=== PATIENT | female | born 1975 | race Caucasian/White ===

== ENCOUNTER 2019-03-13 09:42 | Inpatient (IN) ==
[2019-03-13] MEDS ORDERED: VANCOMYCIN 1 GM/NS 1 GM/250 ML IVPB IV ONE ×3 (09:50→15:00)
[2019-03-13] MEDS ORDERED: NS 1,000 ML IV ONE ×2 (09:50→09:51)
[2019-03-13] MEDS ORDERED: TYLENOL PO ONE (09:51)
[2019-03-13] MEDS ORDERED: ZOFRAN IV ONE (09:54)
[2019-03-13] MEDS ORDERED: MORPHINE IV ONE (09:54)
[2019-03-13 10:05] LABS: ALLEN TEST YES; BE -2.3 mmoll (-3.0-3.0); BLOOD TYPE ARTERIAL; HCO3-(ACT) 22.8 mmoll (20.0-26.0); METHB 1.1 % (0.0-1.5); O2(CT) 18.5 mL/dL (15.0-23.0); PCO2(98.6) 38 mmHg (35-45); SAMPLE BLOOD; SAO2 88.1 % (95.0-100.0); THB 15.4 g/dL (11.5-17.4); pH(98.6) 7.38 (7.35-7.45)
[2019-03-13 10:06] LABS: MODALITY ROOM AIR
[2019-03-13 10:10] LABS: PO2(98.6) 49 mmHg (60-100)
--- NOTE | 2019-03-13 10:13 | PROVIDER DOCUMENTATION ---
This chart was entered by Loar Vila Scribe, acting as scribe for David Garcia MD. HPI-General Adult <Freddie Rosa. - Last Filed: 03/13/19 11:54> - General Source: patient, EMS - History of Present Illness -Gen Adult Nature of Presenting Problems: 43 yowf presents to the [facility] ems for possible infection of her pannus. pt is morbidly obese and is unkempt with a foul odor about her. pt is sob when ems aos and was given O2 and breathing tx. pt noted sx onset on 03/10/19 and has worsened Location of Pain/Injury: reports: abdomen (pannus) Pain Radiation: reports: legs (lower), suprapubic Quality of Pain: reports: fullness Severity: reports: moderate Onset/Duration: reports: other (march 10) Timing: reports: still present, constant, getting worse Context/Activities at Onset: reports: light activity Modifying Factors: improves with: nothing Associated Symptoms: reports: fatigue, malaise, muscle aches, shortness of breath. denies: back/neck pain, chest pain, fever/chills, headaches, nausea, syncope, vomiting, weakness, trouble walking Similar Symptoms Previously?: No Recently seen or treated by another doctor?: No <David Garcia - Last Filed: 03/19/19 14:34> - General Chief Complaint: SEPSIS ALERT - D Stated Complaint: hip infection Time Seen by Provider: 03/13/19 09:47 Allergies/Adverse Reactions: Patient Allergies Allergy/AdvReac Type Severity Reaction Status Date / Time xylitol Allergy ANAPHYLAXIS Verified 03/13/19 10:17 aspirin AdvReac Unknown Verified 03/13/19 10:17 bee venom protein (honey bee) AdvReac FLUSHING Verified 03/13/19 10:17 naproxen AdvReac Unknown Verified 03/13/19 10:17 Mt. Dew Allergy ANAPHYLAXIS Uncoded 03/13/19 10:17 Powerade Allergy ANAPHYLAXIS Uncoded 03/13/19 10:17 Plastic AdvReac Unknown Uncoded 03/13/19 10:17 Tape AdvReac Unknown Uncoded 03/13/19 10:17 Home Medications: Home Medication List Medication Instructions Recorded Confirmed Last Taken Type Folic Acid 1 mg PO HS 03/13/19 03/13/19 03/12/19 History Meloxicam 15 mg PO HS 03/13/19 03/13/19 03/12/19 History Methotrexate Sodium/Pf 0.9 ml IJ Q7D 03/13/19 03/13/19 03/06/19 History [Methotrexate 50 mg/2 ml Vial] Review of Systems - Adult - REVIEW OF SYSTEMS - ADULT Constitutional: denies: fever, fatique Eyes: reports: no symptoms reported Ears, Nose, Mouth & Throat: reports: no symptoms reported Cardiovascular: reports: see HPI, poor circulation. denies: chest pain, palpitations Respiratory: reports: see HPI, shortness of breath. denies: cough, wheezing Gastrointestinal: reports: see HPI, abdominal pain, other (pannus). denies: diarrhea, poor appetite, vomiting Genitourinary: reports: no symptoms reported Musculoskeletal: reports: see HPI, other (lower extremity). denies: neck pain Integumentary: reports: see HPI, skin sores/ulcer, other (foul smell redness and swelling of abd pannus and le) Neurological: denies: dizziness/vertigo, headache/migraines Psychiatric: reports: no symptoms reported Endocrine: reports: no symptoms reported Hematologic/Lymphatic: reports: no symptoms reported Allergic/Immunologic: reports: no symptoms reported All Other Systems: Reviewed and Negative <David Garcia - Last Filed: 03/19/19 14:34> Past History - Adult - PAST MEDICAL HISTORY-ADULT Review of Records: reports: Old Records Reviewed, Nursing Assessment Review, Medications Reviewed, Social history reviewed & non-contributory. Major Childhood Illnesses: reports: denies history Cardiovascular: reports: denies history Respiratory: reports: asthma Gastrointestinal: reports: denies history Obstetrical/Gynecological: reports: denies history Genitourinary: reports: denies history Musculoskeletal: reports: arthritis Neurological: reports: Seizures/Epilepsy Psychiatric: reports: denies history Endocrine/Immune: reports: denies history Other Conditions: reports: denies history - PRIOR SURGERIES/PROCEDURES Surgical/Procedure History: reports: reviewed, not pertinent - IMMUNIZATION STATUS Childhood Immunizations: See Nurse Assessment Flu Vaccine: See Nurse Assessment - FAMILY HISTORY Family History: reviewed, not pertinent - SOCIAL HISTORY Smoking: denies Substance Use: denies Living Situation: family <David Garcia - Last Filed: 03/19/19 14:34> Physical Exam-General - PHYSICAL EXAM-ADULT Initial Vital Signs Reviewed: Yes - CONSTITUTIONAL General Appearance: alert, mild distress, obese, anxious - EYES Eyes: PERRL/EOMI, pink conjunctivae - HEAD, EARS, NOSE, MOUTH & THROAT HENMT: moist mucous membranes - NECK Neck: non-tender, full range of motion, supple, normal inspection - RESPIRATORY Respiratory: chest non-tender, no pleuratic chest pain, respiratory distress (mi ld low o2 84% placed on O2 2LPM via NC now 95), increased rate (36) - CARDIOVASCULAR Cardiovascular: normal peripheral pulses, tachycardia (124) - GASTROINTESTINAL (ABDOMEN) Abdominal Exam: soft, tenderness (pannus), other (redness swollen and foul smell to pannus area with satlite lesions on rt thigh) - LYMPHATIC Lymphatic: no adenopathy - MUSCULOSKELETAL Back Exam: normal inspection Extremity: erythema, pedal edema (cynosis to BLE), swelling ($+ pitting edema) - SKIN Integumentary: erythema (to pannus and abd) <David Garcia - Last Filed: 03/19/19 14:34> Progress - PLAN OF CARE/RESULTS Progress/Plan/Lab Results: Vital Signs - 8 hr 03/13/19 09:51 Temperature 98.3 F Pulse Rate 124 H Respiratory Rate 36 H Blood Pressure 119/81 O2 Sat by Pulse Oximetry 96 Laboratory Results - last 24 hr 03/13/19 03/13/19 03/13/19 09:56 10:20 11:03 WBC 11.11 H RBC 5.65 H Hgb 15.5 Hct 49.3 H MCV 87.3 MCH 27.4 MCHC 31.4 L RDW Std Deviation 21.4 H Plt Count 128 L MPV 11.2 H Neut % (Auto) 89.2 H Lymph % (Auto) 6.7 L Towns % (Auto) 4.0 Eos % (Auto) 0.0 Baso % (Auto) 0.1 Neut # (Auto) 9.92 H Lymph # (Auto) 0.74 L Towns # (Auto) 0.44 Eos # (Auto) 0.00 Baso # (Auto) 0.01 PT INR PTT (Actin FS) Specimen Type ARTERIAL Sample Site L RADIAL pH 7.38 pCO2 38 pO2 49 L* HCO3 22.8 Base Excess -2.3 Oxyhemoglobin 85.5 L* ABG O2 Sat (Calculated) 18.5 ABG O2 Saturation 88.1 L ABG Carboxyhemoglobin 1.80 ABG Methemoglobin 1.1 Jose Test YES A-a O2 Difference 53.0 Total Hemoglobin 15.4 Lactate 2.70 H Blood Gas Modality ROOM AIR FiO2 % 21.0 Sodium 134 L Potassium 4.8 Chloride 97 L Carbon Dioxide 21 L Anion Gap 16 BUN 14 Creatinine 0.8 Estimated GFR/1.73 m2 > 60 BUN/Creatinine Ratio 18 Glucose 109 H Calculated Osmolality 269 Calcium 8.4 L Magnesium 1.6 Total Bilirubin 1.15 H AST 18 ALT 12 Alkaline Phosphatase 50 Creatine Kinase Troponin T Total Protein 6.5 Albumin 2.9 L Globulin 3.6 Albumin/Globulin Ratio 0.8 03/13/19 03/13/19 03/13/19 11:14 11:14 11:14 WBC RBC Hgb Hct MCV MCH MCHC RDW Std Deviation Plt Count MPV Neut % (Auto) Lymph % (Auto) Towns % (Auto) Eos % (Auto) Baso % (Auto) Neut # (Auto) Lymph # (Auto) Towns # (Auto) Eos # (Auto) Baso # (Auto) PT 15.5 INR 1.13 PTT (Actin FS) Specimen Type Sample Site pH pCO2 pO2 HCO3 Base Excess Oxyhemoglobin ABG O2 Sat (Calculated) ABG O2 Saturation ABG Carboxyhemoglobin ABG Methemoglobin Jose Test A-a O2 Difference Total Hemoglobin Lactate Blood Gas Modality FiO2 % Sodium Potassium Chloride Carbon Dioxide Anion Gap BUN Creatinine Estimated GFR/1.73 m2 BUN/Creatinine Ratio Glucose Calculated Osmolality Calcium Magnesium Total Bilirubin AST ALT Alkaline Phosphatase Creatine Kinase 27 Troponin T < 0.010 Total Protein Albumin Globulin Albumin/Globulin Ratio 03/13/19 11:14 WBC RBC Hgb Hct MCV MCH MCHC RDW Std Deviation Plt Count MPV Neut % (Auto) Lymph % (Auto) Towns % (Auto) Eos % (Auto) Baso % (Auto) Neut # (Auto) Lymph # (Auto) Towns # (Auto) Eos # (Auto) Baso # (Auto) PT INR PTT (Actin FS) 30.6 Specimen Type Sample Site pH pCO2 pO2 HCO3 Base Excess Oxyhemoglobin ABG O2 Sat (Calculated) ABG O2 Saturation ABG Carboxyhemoglobin ABG Methemoglobin Jose Test A-a O2 Difference Total Hemoglobin Lactate Blood Gas Modality FiO2 % Sodium Potassium Chloride Carbon Dioxide Anion Gap BUN Creatinine Estimated GFR/1.73 m2 BUN/Creatinine Ratio Glucose Calculated Osmolality Calcium Magnesium Total Bilirubin AST ALT Alkaline Phosphatase Creatine Kinase Troponin T Total Protein Albumin Globulin Albumin/Globulin Ratio Orders Category Date Time Status Cardiac Monitoring DIRECTED Care 03/13/19 10:03 Active Beck Cath Insertion ORDERED Care 03/13/19 09:49 Active Notify MD of + Sepsis Screen NOW Care 03/13/19 10:03 Active Notify Physician As Ordered Care 03/13/19 10:03 Active Nursing- Obtain EKG once Care 03/13/19 09:49 Active Saline Loc NOW Care 03/13/19 09:49 Active CHEST-PORTABLE [RAD] Stat Exams 03/13/19 09:50 Completed ABG [RESP] Routine Lab 03/13/19 09:56 Completed BLOOD CULTURE [BLDCUL] Stat Lab 03/13/19 10:20 Received CBC WITH ELECTRONIC DIFF [HEME] Stat Lab 03/13/19 10:20 Completed CK PROFILE [SP CHEM] Stat Lab 03/13/19 11:14 Completed COMPREHENSIVE METABOLIC PANEL [CHEM] Stat Lab 03/13/19 11:03 Completed LACTATE, PLASMA [CHEM] Lab 03/13/19 12:49 Uncollected LACTATE, PLASMA [CHEM] Lab 03/13/19 15:49 Uncollected LACTATE, PLASMA [CHEM] Stat Lab 03/13/19 11:02 Received MAGNESIUM [CHEM] Stat Lab 03/13/19 11:03 Completed TEST-URINE [PREG] Stat Lab 03/13/19 10:18 Uncollected PRO B-NATRIURETIC PEPTIDE Stat Lab 03/13/19 11:14 Received PROTIME WITH INR [COAG] Stat Lab 03/13/19 11:14 Completed PTT [COAG] Stat Lab 03/13/19 11:14 Completed TROPONIN T Stat Lab 03/13/19 11:14 Completed URINALYSIS W/POSS RFLX CULT [URINALYSIS] Stat Lab 03/13/19 09:50 Uncollected WOUND CULTURE INC GRAM STAIN [RM] Stat Lab 03/13/19 09:50 Uncollected 0.9% Sodium Chloride Inj [Ns] 1,000 ml Med 03/13/19 09:50 Discontinued IV 999 mls/hr 0.9% Sodium Chloride Inj [Ns] 1,000 ml Med 03/13/19 09:51 Discontinued IV 999 mls/hr Acetaminophen [Tylenol] Med 03/13/19 09:51 Discontinued 1,000 mg PO NOW ONE Albuterol 2.5MG/Ipratrop 0.5MG [Duoneb (A & A)] Med 03/13/19 10:39 Discontinued 3 ml INH NOW ONE Fluconazole 400 mg/Ns [Diflucan 400 mg/Ns] Med 03/13/19 12:00 Active 400 mg in 200 ml IV NOW Furosemide [Lasix] Med 03/13/19 10:39 Discontinued 40 mg IV NOW ONE Morphine Med 03/13/19 09:54 Discontinued 4 mg IV NOW ONE Ondansetron [Zofran] Med 03/13/19 09:54 Discontinued 4 mg IV NOW ONE Piperacillin/Tazobactam [Zosyn] 4.5 gm Med 03/13/19 11:00 Active 0.9% Sodium Chloride Inj [Ns] 100 ml IV NOW Vancomycin 1 gm/Ns Med 03/13/19 09:50 Discontinued 1 gm in 250 ml IV NOW Vancomycin 1 gm/Ns Med 03/13/19 09:51 Discontinued 1 gm in 250 ml IV NOW Aerosol Treatments Routine Oth 03/13/19 10:40 Completed Aerosol Treatments Stat Oth 03/13/19 10:40 Completed Oxygen Device Stat Oth 03/13/19 10:03 Completed EKG [EKG] Stat Ther 03/13/19 09:49 Ordered Result Diagrams: 03/13/19 10:20 03/13/19 11:03 <Freddie Rosa - Last Filed: 03/13/19 11:54> - PLAN OF CARE/RESULTS Progress/Plan/Lab Results: Vital Signs - 8 hr 03/13/19 09:51 Temperature 98.3 F Pulse Rate 124 H Respiratory Rate 36 H Blood Pressure 119/81 O2 Sat by Pulse Oximetry 96 Orders Category Date Time Status Beck Cath Insertion ORDERED Care 03/13/19 09:49 Active Nursing- Obtain EKG once Care 03/13/19 09:49 Active Saline Loc NOW Care 03/13/19 09:49 Active CHEST-PORTABLE [RAD] Stat Exams 03/13/19 09:50 Ordered ABG [RESP] Routine Lab 03/13/19 09:56 Received BLOOD CULTURE [BLDCUL] Stat Lab 03/13/19 09:49 Ordered CBC WITH ELECTRONIC DIFF [HEME] Stat Lab 03/13/19 09:49 Uncollected COMPREHENSIVE METABOLIC PANEL [CHEM] Stat Lab 03/13/19 09:49 Uncollected LACTATE, PLASMA [CHEM] Stat Lab 03/13/19 09:49 Uncollected MAGNESIUM [CHEM] Stat Lab 03/13/19 09:49 Uncollected PRO B-NATRIURETIC PEPTIDE Stat Lab 03/13/19 09:49 Uncollected PROTIME WITH INR [COAG] Stat Lab 03/13/19 09:50 Uncollected TROPONIN T Stat Lab 03/13/19 09:50 Uncollected URINALYSIS W/POSS RFLX CULT [URINALYSIS] Stat Lab 03/13/19 09:50 Uncollected WOUND CULTURE INC GRAM STAIN [RM] Stat Lab 03/13/19 09:50 Uncollected 0.9% Sodium Chloride Inj [Ns] 1,000 ml Med 03/13/19 09:50 Active IV 999 mls/hr 0.9% Sodium Chloride Inj [Ns] 1,000 ml Med 03/13/19 09:51 Active IV 999 mls/hr Acetaminophen [Tylenol] Med 03/13/19 09:51 Discontinued 1,000 mg PO NOW ONE Fluconazole 400 mg/Ns [Diflucan 400 mg/Ns] Med 03/13/19 09:53 Ordered 400 mg in 200 ml IV NOW Morphine Med 03/13/19 09:54 Discontinued 4 mg IV NOW ONE Ondansetron [Zofran] Med 03/13/19 09:54 Discontinued 4 mg IV NOW ONE Piperacillin/Tazobactam [Zosyn] 4.5 gm Med 03/13/19 09:50 Ordered 0.9% Sodium Chloride Inj [Ns] 100 ml IV NOW Vancomycin 1 gm/Ns Med 03/13/19 09:50 Active 1 gm in 250 ml IV NOW Vancomycin 1 gm/Ns Med 03/13/19 09:51 Active 1 gm in 250 ml IV NOW EKG [EKG] Stat Ther 03/13/19 09:49 Ordered Result Diagrams: 03/19/19 05:30 03/19/19 05:30 - REASSESSMENT Reassessment #1 Time Reassessed: 10:23 (O2 sat has improved since arrival) Status: improving Reassessment #2 Time Reassessed: 11:34 ( at bedside) Status: unchanged - EKG 1 Time of EKG reading by physician:: 10:28 EKG Read and Signed by:: Freddie Roas EKG Interpretation (*Must complete 3 of following elements*): Abnormal Rate: 116 Rhythm: sinus tachycardia [place]: right (deviation) QRS: other (RVH) TN Interval: normal ST Wave: normal Prior EKG Comparison: no prior EKG Comments: nonspecific T wave abnormality - XRAY 1 XRAY: Bilateral XRAY Study: Chest Impression: See EMR Report (EXAM: CHEST-PORTABLE 03/13/2019 HISTORY: septic TECHNIQUE: AP portable at 1006 COMMENT: There are no previous studies. There is cardiomegaly. There is increased pulmonary vascularity. There is apparent mild interstitial pulmonary edema. IMPRESSION: Cardiomegaly and pulmonary edema. Electronically signed by Sergio Vega 03/13/2019 10:20 AM 03/13/19 1020 Interpreting Physician: Sergio Vega MD Dictated Date/Time: 03/13/19 1019 cc: David Garcia MD; None,PCP) - CONSULTS/PCP/HOSPITALIST Notification #1 *Consult/PCP/Hospitalist*: hospitalist dr christensen Time Discussed: 11:31 (spoke with summer [facility]) Consult Disposition: Admit - CHANGE OF SHIFT REPORT (ED Provider) 1 Report Given and Care Transferred to:: Shelley Time of Transfer: 10:12 Items Pending: Labs, XRAY Results, Physician Consult/Arrival <David Garcia - Last Filed: 03/19/19 14:34> Departure - Departure Date of Disposition Decision: 03/13/19 Time of Disposition Decision: 11:54 <Freddie Rosa - Last Filed: 03/13/19 11:54> - Departure Certified Medical Emergency: Emergent - Critical Care Note This patient required my direct & personal management of CC.: Yes Total Time (mins): 38 Critical Care Statement: This patient required my direct personal management to treat or rule out processes, the absence of which, could potentiallly result in sudden, clinically significant life or limb threatening deterioration. <David Garcia - Last Filed: 03/19/19 14:34> - Departure DIAGNOSIS: Panniculitis Disposition: ADMITTED INPATIENT 09 Condition: Fair Attestation - Physician/ CONY Attestation Patient care was provided by Advanced Practice Provider:: No The physician spent face to face time with patient:: Yes Advanced Practice Provider documentation review:: Supervising physician onsite and consulted in the evaluation and care of this patient. The physician did have a face to face encounter with the patient. <Freddie Rosa - Last Filed: 03/13/19 11:54> - Physician/ CONY Attestation Patient care was provided by Advanced Practice Provider:: No The physician spent face to face time with patient:: Yes Advanced Practice Provider documentation review:: Supervising physician onsite and consulted in the evaluation and care of this patient. The physician did have a face to face encounter with the patient. <David Garcia - Last Filed: 03/19/19 14:34> This chart was documented by the indicated scribe, (Lora Vila Scribe) and accurately reflects the services I performed and decisions made by , David Garcia MD, as attested by the provider's signature.
--- NOTE | 2019-03-13 10:22 | Diag Imaging Result Doc PS360 ---
EXAM: CHEST-PORTABLE 03/13/2019 HISTORY: septic TECHNIQUE: AP portable at 1006 COMMENT: There are no previous studies. There is cardiomegaly. There is increased pulmonary vascularity. There is apparent mild interstitial pulmonary edema. IMPRESSION: Cardiomegaly and pulmonary edema. Electronically signed by Sergio Vega 03/13/2019 10:20 AM
[2019-03-13] MEDS ORDERED: LASIX IV ONE (10:39)
[2019-03-13] MEDS ORDERED: DUONEB (A & A) INH ONE (10:39)
[2019-03-13 10:46] LABS: HEMATOCRIT 49.3 % (37.0-47.0); HEMOGLOBIN 15.5 g/dL (12.0-16.0); MCH 27.4 PG (27-31); MCHC 31.4 g/dL (33-37); MCV 87.3 FL (81-99); RBC 5.65 XMIL (4.2-5.4); RDW 21.4 % (11.5-14.5); WBC 11.11 X1000 (4.8-10.8)
[2019-03-13 10:47] LABS: BASO# 0.01 X1000 (0.0-0.2); BASO% 0.1 % (0.0-0.8); LYMPH# 0.74 X1000 (1.2-3.4); LYMPH% 6.7 % (20.5-51.1); MONO# 0.44 X1000 (0.11-0.59); MPV 11.2 FL (7.4-10.4); NEUT# 9.92 X1000 (1.4-6.5); NEUT% 89.2 % (42.2-75.2); PLT 128 X1000 (130-400)
[2019-03-13] MEDS ORDERED: ZOSYN 4.5 GM in NS 100 ML IV ONE (11:00)
[2019-03-13 11:31] LABS: INR 1.13; PROTIME 15.5 Seconds (11.0-16.0)
[2019-03-13 11:37] LABS: AGAP 16; ALB/GLOB RATIO 0.8; ALBUMIN 2.9 g/dL (3.5-5.0); ALKALINE PHOSPHATASE 50 U/L (32-104); BUN 14 mg/dL (8-22); CALCIUM 8.4 mg/dL (8.8-10.2); CHLORIDE 97 mmol/L (98-107); COSMO 269; CREATININE 0.8 mg/dL (0.5-0.9); ESTIMATED GFR > 60; GLUCOSE 109 mg/dL (70-104); GOT 18 U/L (10-30); GPT 12 U/L (10-36); MAGNESIUM 1.6 mg/dL (1.5-2.7); POTASSIUM 4.8 mmol/L (3.5-5.1); SODIUM 134 mmol/L (136-145); TCO2 21 mmol/L (25-35); TOTAL BILIRUBIN 1.15 mg/dL (0.20-1.00); TOTAL PROTEIN 6.5 g/dL (6.3-8.3)
[2019-03-13] MEDS ORDERED: DIFLUCAN 400 MG/NS 400 MG/200 ML IVPB IV ONE (12:00)
[2019-03-13] MEDS ORDERED: ZOFRAN IV PRN (13:47)
[2019-03-13] MEDS ORDERED: NORCO-7.5 PO PRN (13:47)
[2019-03-13] MEDS ORDERED: TYLENOL PO PRN (13:47)
[2019-03-13] MEDS ORDERED: VANCOMYCIN IV PER PHARMACY MISC SCH (14:00)
[2019-03-13] MEDS ORDERED: DIFLUCAN 200 MG/NS 200 MG/100 ML IVPB IV SCH (14:00)
[2019-03-13] MEDS ORDERED: LOVENOX SUBQ SCH (14:00)
[2019-03-13] MEDS ORDERED: MORPHINE IV PRN (14:05)
[2019-03-13 14:27] LABS: URINE SOURCE CATH
[2019-03-13 14:32] LABS: BILIRUBIN URINE NEGATIVE (NEGATIVE); BLOOD URINE NEGATIVE (NEGATIVE); COLOR YELLOW; GLUCOSE URINE NEGATIVE (NEGATIVE); KETONE URINE NEGATIVE (NEGATIVE); LEUKOCYTES URINE NEGATIVE (NEGATIVE); NITRITE URINE NEGATIVE (NEGATIVE); PH URINE 5.5; PROTEIN URINE 70 mg/dL (NEGATIVE); SP GRAVITY URINE 1.026; TURBIDITY URINE CLEAR (CLEAR); UROBILINOGEN URINE 2 mg/dL (NORMAL)
[2019-03-13 14:33] LABS: UR EPITHELIAL CELLS <10 /HPF (<10); URINE BACTERIA NEGATIVE /HPF; URINE RBC <10 /HPF (<10); URINE WBC <10 /HPF (<10)
--- NOTE | 2019-03-13 15:39 | HISTORY AND PHYSICAL ---
PRIMARY CARE PHYSICIAN: Dr. Fraser with rheumatology in [place]. CHIEF COMPLAINT: Fever and abdomen infection. HISTORY OF PRESENT ILLNESS: Ms. Martin is a 43-year-old, female who presents to the ER today with complaints of fever and chills, and infection noted to the right lower abdomen and behind the right knee. The patient is very morbidly obese, greater than 400 pounds. Patient states that on March 10, she started feeling febrile with chills, had a temperature of a 102 degrees. She was positive for a headache. Patient has been taking Tylenol at home for her fevers. The patient states at that time that she was unable to come to the ER but today that she felt so bad, she had to come to the ER. The patient says she has been having some difficulty urinating, and has not urinated since yesterday. The patient states right now, she has a headache. Upon arrival to the ER, she had a temperature of 102.1 degrees. The patient has notable edema to the right lower abdominal space and to the buttocks region. She has notable edema to the right lower extremity. There is an open wound behind the right knee. She also has an open wound to the left groin area. The patient is greater than 400 pounds. She states that she usually does get around pretty well. However, she does have to have some help with her daily activities but that she is able to walk appropriately. The patient states there is nothing wrong with her bowels. She had a bowel movement yesterday. However, she has not been able to urinate since yesterday. The patient does have some 1+ edema noted to the bilateral lower extremities. Right leg is more edematous than the left leg. Lungs sounds are diminished throughout. Laboratory findings in the ER did show a white blood cell count of 11.1. The pH is 7.38, CO2 of 38, and a PO2 of 49, oxyhemoglobin of 8.5, bicarb of 22.8, and O2 saturation was 88%. This was on room air. The patient at that time was placed on oxygen at 4 L nasal cannula. Lactate level was elevated to 2.7. Sodium level was decreased to 134. ProBNP was obtained and was 12,234. Plasma lactate was re-obtained and is now down to 2.4. Blood cultures and wound cultures were obtained in the ER. The patient was given a bolus of fluid in the ER. She was also given 40 mg of Lasix in the ER. The patient was started on vancomycin, Zosyn, and Diflucan in the ER. Upon examination of all the wounds, there was a notable odor to the wound areas. Vital signs, heart rate is sinus tachycardia at 116. The patient is having some pain to the right lower leg region, especially upon palpation. A Beck catheter was ordered to be placed by the ER nurses. PAST MEDICAL HISTORY: Morbid obesity, reactive arthritis, dislocation to three of the right fingers, asthma, and pneumonia in August 2018. PAST SURGICAL HISTORY: None. FAMILY HISTORY: Mother and father are present at the bedside. Mother states that she has some hearing loss. Father states that he has hypertension and borderline diabetes. SOCIAL HISTORY: Patient lives in [place], [place] with her parents, who are still living. The patient is disabled and has never been . ALLERGIES: Aspirin, naproxen, xylitol, bees, chocolate, Mountain Dew, and Power Rosana. MEDICATIONS: Folic acid 1 mg p.o. daily, meloxicam 15 mg p.o. daily, methotrexate 9 mL every 7 days. LABORATORY DATA AND DIAGNOSTICS: White blood cell count 11.1, hemoglobin 15.5, hematocrit 49.3, platelet count 128,000. PT 15.5, INR 1.13, PTT 30.6. PH 7.38, pCO2 is 38, PO2 is 49, bicarb is 20.8, oxyhemoglobin is 85.5, O2 saturation is 88% and this is on room air. Lactate level is 2.70 with a repeat level of 2.4 later today. Sodium is 134, potassium is 4.8, chloride is 97, carbon dioxide is 21, BUN is 14, creatinine is 0.8, GFR is greater than 60, glucose is 109, calcium is 8.4, magnesium is 1.6. Total bilirubin is 1.15, AST is 18, ALT is 12, alkaline phosphatase is 50. Creatine kinase is 27, troponin is less than 0.01. ProBNP is 12,234. Plasma lactate, as stated earlier, was 2.4. Urinalysis is positive for protein. Chest x-ray shows cardiomegaly and pulmonary edema. REVIEW OF SYSTEMS: A 12 point review of systems was obtained and all were negative except what is stated above in the HPI. PHYSICAL EXAMINATION: VITAL SIGNS: Temperature 98.3, heart rate 116, respiratory rate 25, blood pressure 121/75, O2 saturation 94%. Weight 491, height 5 feet 1 inch. GENERAL: This is a 43-year-old, morbidly obese, female lying on the ER stretcher. She is in no acute distress at the present time. She is able to answer all questions appropriately. HEENT: Atraumatic, normocephalic. Pupils are equal, round, reactive to light. Mucous membranes are moist. NECK: Hard to observe because of anatomy. There are no bruits noted. No JVD that can be seen and trachea appears to be midline. CV: Regular rate and rhythm. No murmurs, gallops, or rubs appreciated. RESPIRATORY: Lung sounds are diminished. Equal chest excursion is noted. Respirations are nonlabored with no accessory muscle usage. GI: Abdomen is very large. It is tender on the right side upon palpation. Bowel sounds are present x4. : Patient has not been able to void since yesterday. Nurses are to place a Beck catheter. NEUROLOGIC: The patient is awake, alert, and oriented. Able to answer all questions appropriately. Cranial nerves intact. Moves all extremities and follows commands. MUSCULOSKELETAL: Patient has full distal strength. She is able to move all extremities. The patient does have some weakness noted to the lower extremities compared to the upper extremities. There are no abnormalities or deformities noted. The patient states that she does have three dislocated fingers to the right hand. EXTREMITIES: No clubbing or cyanosis. Patient is positive for edema to the bilateral lower extremities. The right leg does seem to be a little bit larger than the left, although it is hard to tell. There is a lot of edema noted to the right lower abdomen, buttocks region, and the right lower leg does seem to have a lot of edema noticed, noted around behind the knee. DP and PT pulses are present. SKIN: Warm and dry. There are no bruises. No diaphoresis. There is a wound noted to behind the right knee. There is a wound noted to the left groin below the abdominal fold. There is a lot of erythema noted to the left groin area. There is a lot erythema and it is warm to touch noted behind the right knee. There is drainage from the right knee wound that is a white-yellow looking in color. There is a smell to the drainage. There is a lot of erythema and edema noted to the right lower abdomen, groin/buttocks region that kind of goes down the leg. There is a small area that is draining some serous-looking fluid below the right abdominal fold. ASSESSMENT AND PLAN: 1. Panniculitis and cellulitis. We will place this patient on intravenous antibiotics of vancomycin, Zosyn, and Diflucan. Blood cultures and wound cultures have been obtained. I will have wound care see the patient for the leg and abdominal fold wounds. We will possibly have to get infectious disease in to see this patient if the patient does not respond to treatment. 2. Pulmonary edema. The patient had a proBNP greater than 12,000. The patient was given Lasix in the emergency room. We will do an echocardiogram because the patient has never had any cardiac workup. We will repeat serial CK and troponin levels and do an EKG on this patient. The patient does have noted cardiomegaly. 3. Reactive arthritis. We will resume patient's arthritis medication per her honey blender. 4. Fever and leukocytosis. This is possibly all related to her cellulitis. We will give the patient prn Tylenol as needed for temperature. The patient is on antibiotics. Possible sepsis. The patient has elevated lactates and elevated heart rate, and oxygen saturation was decreased. We have placed this patient on intravenous antibiotics. We are unable to give the patient intravenous fluid. She has already had 1 L in the emergency room. Her proBNP was greater than 12,000. We will follow this patient closely and repeat labs. Blood pressure is stable at this time. We will admit this patient to the medical floor. Start this patient on intravenous antibiotics. She has already had blood cultures and wound cultures in the emergency room. We will place a Beck in the patient and watch urine output. BUN and creatinine are okay at this time. PICC line is ordered for IV antibiotics. We may have to get infectious disease involved in the patient's care if she does not respond to treatment with antibiotics. We will get wound care to see her for her leg wounds. We are going to restart her home medications. Give deep venous thrombosis prophylaxis. Started her on omeprazole for gastrointestinal prophylaxis. The patient is started on a healthy heart diet. We will obtain an echocardiogram and do some serial CK and troponins. Dictated by JAILYN Gonzalez for Luis E Antunez MD cc: Luis E Antunez MD [facility]
[2019-03-13] MEDS: DUONEB (A & A) INH PRN ×2 (15:50→19:37)
[2019-03-13] MEDS ORDERED: XYLOCAINE 1% ONE (17:07)
[2019-03-13] MEDS ORDERED: XYLOCAINE 1% INJ ONE (17:21)
--- NOTE | 2019-03-13 17:55 | Diag Imaging Result Doc PS360 ---
EXAM: CHEST-1 VIEW 03/13/2019 HISTORY: CENTRAL LINE PLACEMENT TECHNIQUE: AP portable at 1739 COMMENT: There is a right internal jugular central venous catheter with its tip in the upper superior vena cava near the azygos vein. There is no evidence of pneumothorax or pleural fluid collection on the right. There continues to be cardiomegaly and increased pulmonary vascularity. There is more obscuration of the left heart border than on the previous study which may be indicative of atelectasis or pneumonia in the left upper lobe. IMPRESSION: Questionable left upper lobe pneumonia. Cardiomegaly and mild congestive heart failure. Electronically signed by Sergio Vega 03/13/2019 5:52 PM
--- NOTE | 2019-03-13 18:03 | HISTORY AND PHYSICAL ---
ADDENDUM: Ms. Martin was evaluated in the emergency room today, I have seen and examined her and agree with the H and P that has been dictated by the COMMERCIAL ILLUSTRATOR in the chart. Briefly Ms. Martin is a 43- year-old morbidly obese female who has medical history of reactive arthritis, asthma, presented to the emergency department because of fever and abdominal swelling with erythematous changes for the past couple days. Upon presenting to the emergency department she was found to have a pulse of 124, respiratory rate of 36, blood pressure 119/81, it dropped slightly to about 97/76 at some point and her temperature has also gone to about 101.3 I am told. On physical exams is remarkable for her morbid obesity with BMI of 92.8. She also has a lot of macerations under her pannus in between the folded skin of her excess subcutaneous tissue on her abdomen over the pubic area, there is a lot of erythematous changes and maceration there. I have also reviewed her imaging studies. A chest x-ray revealed cardiomegaly and pulmonary edema, plasma lactate is 2.6. ASSESSMENT: 1. Sepsis secondary to skin and soft tissue infection. 2. Pancolitis with cellulitis, we think that is what is driving the sepsis. Patient will be given broad-spectrum IV antibiotics. Blood cultures and cultures from the open wounds on the skin have also been done. 3. Lactic acidosis . 4. Morbid obesity with body mass index of 92.8. 5. Cardiomegaly with pulmonary edema on x-ray, this could be just reflection of her body habitus. She does not seems to be fluid overload at least at this point. Please refer to the details of and P which has been dictated by the COMMERCIAL ILLUSTRATOR. cc: Luis E Antunez MD [facility]
--- NOTE | 2019-03-13 18:10 | OPERATIVE NOTE ---
PROCEDURE DATE: 03/13/2019 PROCEDURE: Right internal jugular central line placement. INDICATION: Was difficult peripheral access in patient who is septic. Prior written consent was obtained from Ms Martin where the risks of the procedures were all explained including bleeding, infection and other complications and Ms Martin was okay with that. PROCEDURE NOTE: Ultrasound was initially used to localize the right IJ and a brittany was done over it. Subsequently the anatomical site was cleansed with chlorhexidine and patient was draped in regular fashion. The ultrasound was used again to reconfirm the right IJ. Subsequently the skin was anesthetized with 1% lidocaine after which the central line needle was advanced under negative pressure until the tip was localized in the in right IJ, blood return was obtained. This was all under US visualization. Subsequently the guide wire was threaded through the needle, the needle was removed and a little niche was done over the guidewire. Subsequently the skin was dilated and the central line itself was inserted over the guidewire in Seldinger style. After this was done it was secured. All the 3 lumens were tested. There was adequate blood return. A dressing was applied over the line. There was a very minimum blood loss during the procedure. Nurse Chan was at the at the bedside and assisted me throughout the procedure. A chest x-ray has been ordered for line placement, at the time of dictation it has not been done yet. TIME SPENT: About 25 minutes. No immediate complication observed. cc: MD SONAL Zepeda
[2019-03-13] MEDS: ZOSYN 3.375 GM in NS 50 ML IV SCH (20:28)
[2019-03-13] MEDS ORDERED: METHOTREXATE SUBQ SCH (21:26)
--- NOTE | 2019-03-14 00:12 | EKG Report ---
Test Performed on : 03/13/2019 5:56:29 PM Test Reason : cardiomegaly, pulmonary edema Blood Pressure : / mmHG Vent. Rate : 126 BPM Atrial Rate : 126 BPM P-R Int : 134 ms QRS Dur : 074 ms QT Int : 314 ms P-R-T Axes : 062 158 011 degrees QTc Int : 454 ms Sinus tachycardia. Right axis deviation Right ventricular hypertrophy Nonspecific T wave abnormality Abnormal ECG When compared with ECG of 13-MAR-2019 10:28, (Unconfirmed) No significant change was found Confirmed by Brandon Bull MD ([id number]) on 03/16/2019 4:25:18 PM
[2019-03-14] MEDS ORDERED: VANCOMYCIN 2 GM in NS 500 ML IV SCH (03:00)
[2019-03-14] MEDS: ZOSYN 3.375 GM in NS 50 ML IV SCH ×2 (03:09→07:58)
[2019-03-14] MEDS ORDERED: MOBIC PO SCH ×2 (04:00→09:00)
[2019-03-14] MEDS: PRILOSEC PO SCH (06:10)
[2019-03-14] MEDS: FOLIC ACID PO SCH ×2 (06:10→21:22)
[2019-03-14] MEDS ORDERED: NS 1,000 ML IV SCH (06:15)
[2019-03-14] MEDS ORDERED: NS 500 ML IV SCH (06:30)
[2019-03-14] MEDS: NS 500 ML IV SCH (06:31)
[2019-03-14 06:43] LABS: HEMOGLOBIN A1C 6.2 % (4.8-6.0)
[2019-03-14 06:53] LABS: CHLORIDE 98 mmol/L (98-107); POTASSIUM 5.5 mmol/L (3.5-5.1); SODIUM 137 mmol/L (136-145); TCO2 24 mmol/L (25-35)
[2019-03-14 06:54] LABS: AGAP 15; BUN 20 mg/dL (8-22); CALCIUM 8.1 mg/dL (8.8-10.2); CHOLESTEROL 63 mg/dL (0-200); COSMO 276; CREATININE 1.4 mg/dL (0.5-0.9); ESTIMATED GFR 41; GLUCOSE 83 mg/dL (70-104); HDL 21 mg/dL (45-65); LDL 21 mg/dL; TRIGLYCERIDES 107 mg/dL (35-135); VLDL 21 mg/dL
[2019-03-14 07:02] LABS: BASO# 0.02 X1000 (0.0-0.2); BASO% 0.1 % (0.0-0.8); HEMOGLOBIN 14.6 g/dL (12.0-16.0); IMM GRAN# 0.04 X1000 (0.0-0.04); IMM GRAN% 0.3 % (0.0-0.5); LYMPH# 1.18 X1000 (1.2-3.4); LYMPH% 8.2 % (20.5-51.1); MCH 27.1 PG (27-31); MCHC 30.4 g/dL (33-37); MCV 89.2 FL (81-99); MONO# 0.73 X1000 (0.11-0.59); MONO% 5.1 % (1.7-9.3); MPV 12.3 FL (7.4-10.4); NEUT# 12.34 X1000 (1.4-6.5); NEUT% 86.3 % (42.2-75.2); PLT 145 X1000 (130-400); RBC 5.38 XMIL (4.2-5.4); RDW 21.6 % (11.5-14.5); WBC 14.31 X1000 (4.8-10.8)
--- NOTE | 2019-03-14 08:03 | EKG Report ---
Test Performed on : 03/13/2019 10:28:57 AM Test Reason : septic Blood Pressure : / mmHG Vent. Rate : 116 BPM Atrial Rate : 116 BPM P-R Int : 134 ms QRS Dur : 074 ms QT Int : 296 ms P-R-T Axes : 061 154 017 degrees QTc Int : 411 ms Sinus tachycardia. Right axis deviation Right ventricular hypertrophy Nonspecific T wave abnormality Abnormal ECG No previous ECGs available Unconfirmed Result
[2019-03-14] MEDS ORDERED: FOLIC ACID PO SCH (09:00)
[2019-03-14] MEDS ORDERED: LASIX IV SCH (09:00)
[2019-03-14] MEDS: MAXIPIME 1 GM in NS 50 ML IV SCH ×2 (09:29→16:38)
[2019-03-14] MEDS ORDERED: CUBICIN 500 MG in NS 100 ML IV SCH (10:00)
--- NOTE | 2019-03-14 13:54 | PROGRESS NOTE ---
DATE: 03/14/2019 SUBJECTIVE: This morning Ms. Martin is seen in the ICU. She refers to be doing well. OBJECTIVE: Vitals: Blood pressure is 110/64, pulse of 100, respiration is 22, temperature 97.7 degrees, patient O2 saturation is about 93%. Ms. Martin is a 43-year-old morbidly obese female, she is in bed, BMI is 91.1. She is not in any distress. Mucosa is pink and moist. Anicteric. Acyanotic. Neck: Supple. There is a right IJ. Chest: Good air entry bilaterally. Few crackles in the posterior lung rooney. Cardiovascular: Slightly tachycardic but no murmur. Abdomen: Soft, is globally distended from excess adipose tissue. There is a lot of maceration and erythematous changes below the pannus. There is also some mild erythematous changes in between the thighs, the right thigh is remarkably more swollen than the left. Extremity: About trace pedal edema. STUDENT DEVELOPMENT DEAN: Patient is awake, alert, and oriented. LABORATORY DATA: WBC is 14.31, hemoglobin is 14.6, platelet count of 145,000. Chemistry is also reviewed potassium is 5.5, creatinine is 1.4. A1c is 6.2. Patient blood culture 2/2 is growing gram-positive cocci. The abdominal maceration is also growing gram-positive cocci. ASSESSMENT: 1. Gram-positive cocci bacteremia, we still pending the identification and sensitivity. Patient is on broad-spectrum intravenous antibiotics. 2. Pancolitis with cellulitis. We think this is the source of the sepsis. 3. Lactic acidosis secondary to #1. 4. Morbid obesity with body mass index of 92.8. 5. Chronic hypoxemia secondary to morbid obesity however it is possible that there has been a superimposed left upper lobe pneumonia as per the x-rays. 6. Cardiomegaly with mild congestive failure noted. We will do an echocardiogram. 7. Acute kidney injury. We have discontinued the vancomycin, the Zosyn because of potential renal impairment side effects and we have changed to something less renally toxic. cc: Luis E Antunez MD
[2019-03-14] MEDS ORDERED: DIFLUCAN 200 MG/NS 200 MG/100 ML IVPB IV SCH (14:00)
[2019-03-14] MEDS: DUONEB (A & A) INH PRN ×2 (16:01→22:49)
[2019-03-14] MEDS: MYCOSTATIN POWDER TOP SCH (21:23)
[2019-03-15] MEDS: MAXIPIME 1 GM in NS 50 ML IV SCH (01:35)
[2019-03-15] MEDS: NS 500 ML IV SCH (05:49)
[2019-03-15] MEDS: PRILOSEC PO SCH (06:05)
[2019-03-15 06:32] LABS: BASO# 0.01 X1000 (0.0-0.2); BASO% 0.1 % (0.0-0.8); EOS# 0.01 X1000 (0.0-0.7); EOS% 0.1 % (0.0-10.0); HEMATOCRIT 51.5 % (37.0-47.0); HEMOGLOBIN 14.4 g/dL (12.0-16.0); IMM GRAN# 0.06 X1000 (0.0-0.04); IMM GRAN% 0.3 % (0.0-0.5); LYMPH% 4.6 % (20.5-51.1); MCH 26.3 PG (27-31); MCV 94.1 FL (81-99); MONO# 0.15 X1000 (0.11-0.59); MONO% 0.8 % (1.7-9.3); MPV 11.7 FL (7.4-10.4); NEUT# 18.26 X1000 (1.4-6.5); NEUT% 94.1 % (42.2-75.2); PLT 170 X1000 (130-400); RBC 5.47 XMIL (4.2-5.4); RDW 21.8 % (11.5-14.5); WBC 19.39 X1000 (4.8-10.8)
[2019-03-15 07:12] LABS: ALB/GLOB RATIO 0.6; ALBUMIN 2.9 g/dL (3.5-5.0); CALCIUM 8.8 mg/dL (8.8-10.2); CREATININE 1.8 mg/dL (0.5-0.9); TOTAL BILIRUBIN 0.61 mg/dL (0.20-1.00); TOTAL PROTEIN 7.5 g/dL (6.3-8.3)
[2019-03-15 07:15] LABS: POTASSIUM 6.2 mmol/L (3.5-5.1)
[2019-03-15 07:25] LABS: BANDS 1 % (0-1); LYMPHS 1 % (21-51); NRBC 1 % (0-0); SEGS 98 % (42-75)
[2019-03-15 08:02] LABS: ALLEN TEST YES; BLOOD TYPE ARTERIAL; HCO3-(ACT) 18.7 mmoll (20.0-26.0); O2(CT) 21.4 mL/dL (15.0-23.0); O2HB 96.9 % (95.0-99.0); PO2(98.6) 293 mmHg (60-100); SAMPLE BLOOD; SAO2 99.3 % (95.0-100.0); THB 15.2 g/dL (11.5-17.4)
[2019-03-15 08:03] LABS: MODALITY BI PAP; PCO2(98.6) 111 mmHg (35-45); pH(98.6) 6.99 (7.35-7.45)
[2019-03-15] MEDS: DUONEB (A & A) INH PRN ×5 (08:27→23:00)
[2019-03-15] MEDS ORDERED: CALCIUM GLUCONATE IV PUSH ONE (08:33)
[2019-03-15] MEDS ORDERED: NS 1,000 ML IV ONE (08:40)
[2019-03-15] MEDS ORDERED: HUMULIN R SUBQ ONE (08:43)
[2019-03-15] MEDS ORDERED: D50W SYRINGE IV ONE (08:43)
[2019-03-15] MEDS: ROCEPHIN 1 GM in NS 50 ML IV SCH (08:52)
[2019-03-15] MEDS ORDERED: VANCOMYCIN 2 GM in NS 500 ML IV SCH (09:00)
[2019-03-15] MEDS ORDERED: ALBUTEROL 0.5% INH CONC FOR HYPERKALEMIA INH ONE (09:07)
[2019-03-15 09:12] LABS: ALLEN TEST YES; BE -6.9 mmoll (-3.0-3.0); BLOOD TYPE ARTERIAL; HCO3-(ACT) 19.5 mmoll (20.0-26.0); METHB 0.4 % (0.0-1.5); O2(CT) 17.8 mL/dL (15.0-23.0); O2HB 95.9 % (95.0-99.0); PO2(98.6) 95 mmHg (60-100); SAMPLE BLOOD; SAO2 99.1 % (95.0-100.0); THB 13.1 g/dL (11.5-17.4)
--- NOTE | 2019-03-15 09:12 | Diag Imaging Result Doc PS360 ---
EXAM: CHEST-PORTABLE 03/15/2019 HISTORY: dyspnea TECHNIQUE: AP portable at 0902 COMMENT: There is cardiomegaly. The patient is rotated to the left. There is increased interstitial markings and pulmonary vascularity. Compared to 03/13/2019 the inspiration is less optimal but the opacification of the lungs is also worse particularly in the left base. IMPRESSION: Questionably worsened pulmonary edema. Electronically signed by Sergio Vega 03/15/2019 9:10 AM
[2019-03-15 09:13] LABS: pH(98.6) 7.01 (7.35-7.45)
[2019-03-15 09:14] LABS: MODALITY BI PAP; PCO2(98.6) 106 mmHg (35-45)
[2019-03-15] MEDS: ZYVOX 600 MG/D5W 600 MG/300 ML IVPB IV SCH ×2 (09:31→20:21)
[2019-03-15] MEDS: MYCOSTATIN POWDER TOP SCH ×2 (09:32→20:31)
[2019-03-15] MEDS: LEVOPHED 8 MG in D5 1/2 NS 250 ML IV SCH ×2 (09:32→16:53)
[2019-03-15] MEDS: HEPARIN SUBQ SCH ×2 (09:38→20:21)
[2019-03-15 09:54] LABS: UR CREAT RANDOM 150.4 mg/dL (11-20)
[2019-03-15] MEDS ORDERED: QUELICIN (DOSE) ONE (09:58)
[2019-03-15] MEDS: DIPRIVAN 1% 1,000 MG/100 ML BOTTLE IV SCH ×8 (10:03→22:34)
[2019-03-15] MEDS ORDERED: DIPRIVAN 1% IV ONE (10:07)
--- NOTE | 2019-03-15 10:08 | PROGRESS NOTE ---
DATE: 03/15/2019 SUBJECTIVE: This morning Ms. Martin is under the BiPAP. She refers to me that she is doing okay. However, per the nursing staff Ms. Martin has been less responsive today comparing to yesterday. An ABG was done early this morning and she was found to have a pH of 6.99, pCO2 of 111, and she was put on the BiPAP. OBJECTIVE: Vital signs: Blood pressure is 98/79, pulse of 94, respiration is 18, temperature 98.1 degrees. The patient is saturating 95% on the BiPAP General: Ms. Martin is a 43 years old, extremely morbid obesity with a BMI of 95.7, and she is currently on the BiPAP. HEENT: Mucosa is pink and moist and. Chest: Air entry is bilaterally reduced. Some crackles in the posterior lung rooney. Cardiovascular: Slightly tachycardic but no murmurs, no rubs. Abdomen: Soft, distended. A lot of adipose tissue. There is some macerations and erythematous changes below the pannus. There is also some mild erythematous changes in between the thigh. Extremities: Both lower extremities are large and with trace of pedal edema, but the right lower extremity is more swollen than the left. RESEARCH LIBRARIAN: Patient is awake, alert. Seems to understand and follows basic commands. LABORATORY DATA: WBC is up to 19.39, hemoglobin is 14.4, platelet count of 170,000, 98% of neutrophils. Sodium is 140, potassium is 6.2, chloride is 100, bicarb is 23, creatinine is up to 1.8. I's and O's, urine output in 24 hours was 1025. She is currently positive balance of 645. So far blood cultures 1 out of 2 show coag-negative Staph which I think is a contaminant. There is skin show a strep agalactiae, which is pansensitive except to clindamycin. ASSESSMENT: 1. Sepsis on presentation secondary to panniculitis with cellulitis. Cultures showing strep agalactiae. Because blood cultures are unremarkable except for a contaminant specimen, I have changed the current antibiotics to ceftriaxone. 2. Questionable pneumonia. The patient is was on daptomycin for possible bacteremia so we have discontinued that and switched patient to Zyvox with the ceftriaxone. 3. Cardiomegaly with EKG showing a right axis deviation and possible right ventricular hypertrophy. I am concerned if the patient has a right-sided heart failure. An echocardiogram was done yesterday. Unfortunately, we still do not have the results. We will get cardiology to evaluate the patient. 4. Hypotension. Initially we thought this could be because of sepsis. However, it might be multifactorial, including the fact that the patient could have a right heart failure. We will going to get cardiology to evaluate her. We will also going to start her on a pressor to maintain adequate mean arterial pressure of above 65. 5. Acute kidney injury. The creatinine continues to worsen. The patient is making some urine. We will do some urinalysis. We will also do an ultrasound of the kidneys to make sure there is not any obstructive uropathy. We will get nephrology to evaluate the patient as well. We have discontinue the vancomycin and Zosyn yesterday which could potentially cause nephrotoxicity and will avoid any other medication with that side effects. 6. Concern for venous thromboembolism. Ms. Martin is extremely morbid obese. The right lower extremity seems to be a little bit more swollen than the left. She is hypotensive and she is having issues with her oxygenation. Unfortunately, because of her kidney function, we cannot do a CTA to rule. We ordered Doppler ultrasound of the lower extremities. Unfortunately, this could not be done because of this her body habitus. I was told by the correctional maintenance technician yesterday that she could just not see anything because of excess subcutaneous tissue in the lower extremities. We will do a D-dimer. We will also the patient is currently on deep venous thrombosis prophylaxis. We will consult with pulmonary medicine to see if they strongly suspect possibility of a pulmonary embolism then we will get their recommendations. 7. Altered mental status, presumably due to CO2 narcosis. The patient has been placed on the BiPAP and we will we will recheck the CO2. We will check an ABG within about 2 to 4 hours time. 8. Acute hypercarbic respiratory failure, probably is acute on chronic. The patient is currently on the BiPAP. Pulmonary medicine has been consulted. 9. Acute on chronic hypoxemia. The patient is on BiPAP. Sats are doing well. As I said there is always the concern for pulmonary embolism. Unfortunately, we have not been able to do any contrast studies because of worsening creatinine and patient could not get could not get a Doppler ultrasound of the lower extremities. An echocardiogram has been done we will be waiting on to see what is the functionality of the right ventricle and then go from there. Ms. Martin is critically sick today. She is currently on the BiPAP. She is just a step away from being intubated. We will get will get pulmonary medicine to see her. We will also get nephrology because of worsening kidney functions and will get cardiology to evaluate her because of congestive heart failure symptoms most predominantly right heart failure. We will also order some urine studies and ultrasound of the kidneys, if they can see anything to help with her workup. Critical time spent is 1 hour. cc: Luis E Antunez MD [facility]
[2019-03-15] MEDS ORDERED: QUELICIN IV ONE (10:11)
--- NOTE | 2019-03-15 10:12 | EKG Report ---
Test Performed on : 03/15/2019 07:46:22 AM Test Reason : abd EKG Blood Pressure : / mmHG Vent. Rate : 096 BPM Atrial Rate : 096 BPM P-R Int : 148 ms QRS Dur : 088 ms QT Int : 336 ms P-R-T Axes : 060 150 030 degrees QTc Int : 424 ms Normal sinus rhythm. Right axis deviation Possible Right ventricular hypertrophy Septal infarct , age undetermined Nonspecific ST and T wave abnormality Abnormal ECG When compared with ECG of 13-MAR-2019 17:56, (Unconfirmed) Septal infarct is now present Confirmed by Brandon Bull MD ([id number]) on 03/16/2019 4:45:48 PM
--- NOTE | 2019-03-15 10:22 | Diag Imaging Result Doc PS360 ---
EXAM: CHEST-PORTABLE 03/15/2019 HISTORY: intubation TECHNIQUE: AP portable at 1006 COMMENT: There is an endotracheal tube with its tip at the thoracic inlet. There is opacification in the left base and lingula obscuring the heart border and lateral hemidiaphragm. This was also present on the previous study at 0901. IMPRESSION: Lingular and left lower lobe pneumonia. The possibility of pulmonary edema cannot be excluded. Electronically signed by Sergio Vega 03/15/2019 10:20 AM
--- NOTE | 2019-03-15 10:27 | ECHO REPORT ---
ORDER DATE: 03/13/2019 INTERPRETING PHYSICIAN: Dr. Chato Linda. ECHOCARDIOGRAPHIC MEASUREMENTS: 1. Interventricular septum 1.4 2. Left ventricular posterior wall 1.4. 3. Diastolic diameter 4.0. 4. Left atrium 3.9. 5. Aorta 3.4. SUMMARY OF THE 2-DIMENSIONAL IMAGIN. Technically suboptimal study, very poor parasternal and apical windows. 2. Aortic valve leaflets not well visualized. 3. Pulmonic valve not well visualized. 4. Mitral valve not well visualized. 5. Tricuspid valve not well visualized. 6. Velocities across the mitral and tricuspid could not be accurately obtained. 7. Left ventricular cavity size appears to be normal with an estimated ejection fraction of 50% to 55%. There is left ventricular hypertrophy. Recommend other modality of imaging with transesophageal echocardiogram or MUGA scan for better evaluating left ventricular systolic function. cc: Chato Linda MD
[2019-03-15] MEDS ORDERED: CETACAINE ONE (10:35)
[2019-03-15 11:39] LABS: BLOOD TYPE ARTERIAL; SAMPLE BLOOD
[2019-03-15 11:40] LABS: ALLEN TEST YES; BE -7.7 mmoll (-3.0-3.0); HCO3-(ACT) 18.9 mmoll (20.0-26.0); METHB 1.1 % (0.0-1.5); O2(CT) 20.6 mL/dL (15.0-23.0); O2HB 97.1 % (95.0-99.0); PO2(98.6) 386 mmHg (60-100); SAO2 99.4 % (95.0-100.0); SRATE 18 BPM; THB 14.4 g/dL (11.5-17.4); TVOL 500 mL
[2019-03-15 11:41] LABS: MODALITY VENTILATOR; PCO2(98.6) 66 mmHg (35-45); pH(98.6) 7.14 (7.35-7.45)
[2019-03-15] MEDS ORDERED: LASIX IV ONE (13:38)
[2019-03-15 15:32] LABS: O2HB 85.5 % (95.0-99.0)
[2019-03-15 16:04] LABS: ALBUMIN 2.2 g/dL (3.5-5.0); CALCIUM 8.9 mg/dL (8.8-10.2); CREATININE 1.9 mg/dL (0.5-0.9); POTASSIUM 5.4 mmol/L (3.5-5.1)
--- NOTE | 2019-03-15 17:03 | Diag Imaging Result Doc PS360 ---
EXAM: US RENAL 2 (RETROPER) COMPLETE HISTORY: myrna/arf TECHNIQUE: Renal ultrasound COMPARISON: None. FINDINGS: The right kidney measures 10.0 x 5.6 x 3.8 cm. Normal renal echotexture and cortical thickness. No stone or hydronephrosis. No renal mass. The left kidney is not identified. IMPRESSION: Normal right kidney. Electronically signed by Kehinde Fernandes 03/15/2019 5:01 PM
--- NOTE | 2019-03-15 18:40 | CONSULTATION ---
DATE OF CONSULTATION: 03/15/2019 IMPRESSION: 1. Respiratory failure, hypercapnic. Chest x-rays demonstrates prominent left-sided infiltrate suggesting pneumonia in the setting of morbid obesity and obstructive sleep apnea. 2. Right-sided congestive heart failure suggested by consistently elevated central venous pressure. 3. Recent panniculitis/cellulitis with associated bacteremia with Staphylococcus and Streptococcus species, with associated bacteremia with Staphylococcus species. 4. Acute renal dysfunction. 5. Massive obesity. 6. Panniculitis/cellulitis. 7. Cannot exclude right lower extremity deep vein thrombosis. RECOMMENDATIONS: 1. Continue supportive care. 2. Diurese cautiously. 3. Ultimately the patient would likely benefit from transesophageal echocardiography prior to extubation to better assess cardiac performance and valvular heart disease. HISTORY OF PRESENT ILLNESS: This 43-year-old white female with a past history of massive obesity was admitted through the emergency room due to fever, chills, diffuse aches, and evidence of cellulitis/panniculitis. She was admitted to the intensive care unit. She is treated with parental antibiotics. Blood cultures were positive for Staphylococcus aureus. She developed hypercapnic respiratory failure and required intubation. She has demonstrated consistently elevated right-sided Pressures/CVP. Cardiology was consulted regarding suspected right-sided heart failure. Echocardiography was technically difficult, indicated normal left ventricular ejection fraction. It was a very limited study because of her severe obesity. PAST MEDICAL HISTORY: 1. Massive obesity. 2. Arthritis. 3. Asthma. PAST SURGICAL HISTORY: None. ALLERGIES: She is allergic or intolerant to aspirin, Naprosyn, xylitol, bees, chocolate, Mountain Dew, and Powerade. MEDICATIONS PRIOR TO ADMISSION: As listed. SOCIAL HISTORY: She is single and disabled. She lives with her parents. She does not smoke. FAMILY HISTORY: Negative for premature coronary disease and positive for hypertension and diabetes mellitus. REVIEW OF SYSTEMS: Not obtainable given the patient's present state, intubated and on a ventilator. PHYSICAL EXAMINATION: General: The physical exam reveals a massively obese adult white female, sedated on the ventilator. Vital Signs: Blood pressure 100/50, heart rate 85. HEENT: Extraocular movements appear intact. Mucous membranes are moist. Neck: Supple. Jugular venous distention cannot be appreciated with central venous line and right side of neck and the patient's obesity. Chest: Clear to auscultation anteriorly. Cardiac: Exam reveals a regular rate and rhythm with distant heart sounds. No murmur or gallop could be appreciated. Abdomen: Massively obese with prominent erythema all along the lower part of the abdomen involving panniculus, consistent with panniculitis/cellulitis. Extremities: Demonstrate significantly enlarged right thigh compared to left thigh. LABORATORY DATA: Includes a sodium 140, potassium 6.2, chloride 100, bicarbonate 23, BUN 31, creatinine 1.8, glucose 144. White blood cell count 19.39, hematocrit 51.5, hemoglobin 14.4, platelet count 170,000. CPK initially 27 with followup CPKs of 28 and 27. Troponin T less than 0.01 on initial lab. Followup troponin T less than 0.01 and less than 0.01. Echocardiography reports left ventricular hypertrophy and left ventricular ejection fraction approximately 55%. Study is very difficult. Serial measures of central venous pressure have been around 20 to 22. Chest x-ray today shows prominent infiltrate in the left lingula and left lower lobe. cc: Salazar Cooper MD
--- NOTE | 2019-03-15 20:07 | NEPHROLOGY CONSULTATION ---
DATE: 03/15/2019 REASON FOR ADMISSION: Abdominal infection with fever. REASON FOR CONSULT: Acute kidney injury with hyperkalemia. CONSULTING PHYSICIAN: Dr. Antunez. HISTORY OF PRESENT ILLNESS: Ms. Martin is a 43-year-old white female who had presented to the emergency room, on 03/13/2019, with complaints of fever and chills. She had an infection noted to her right lower abdomen and also behind the right knee. The patient is morbidly obese, weighing greater than 400 to 500 pounds. States that on the 10 of March, she started with fever and chills, temperatures as high as 102. She was positive for headache, negative for chest pain. No increased work of breathing, difficulty urinating. In the emergency room, her temperature was found to be 102.1 degrees. She had an open wound to her left groin area with a foul smell. She had a reddened pannus, left greater than right, but all the way around her entire lower abdomen. Her right leg was more edematous than her left and 1+ edema was noted. In the ER, her white blood cell count was 11.1. She was saturating 88% on room air. The patient was then placed on oxygen at 4 L. It was found that she had a lactate level of 2.7. Sodium was at 134. Blood cultures and wound cultures were currently obtained. Wound culture is positive for strep. Blood cultures are positive for coagulase negative staphylococcus. The patient was initially started on vancomycin, Zosyn, and Diflucan in the emergency room. She was then admitted to the ICU for further monitoring and evaluation. Upon arrival to the ICU, she is in ICU bed 1. She is now intubated, having been placed on 55% BiPAP earlier this a.m., now on 50% FiO2. The patient had urine electrolytes obtained, indicating a fractionated urea score of 6.66%. She was given a 1 L fluid bolus. She is now on Levophed and propofol. Beck catheter was placed. She has decreased urinary output of only 320 mL per Beck catheter. During this period of time, Cardiology has performed an echo Doppler which shows an ejection fraction of 50% to 55%, indicating her aortic valve, pulmonic valve, mitral valve, and tricuspid valve not well visualized due to body habitus. She has had a central line placed to the right IJ per Dr. Antunez. Chest x-ray this a.m. is showing left lower lobe pneumonia with worsening questionable pulmonary edema. She has received Lasix during her hospital stay. PAST MEDICAL HISTORY: According to her father and mother: 1. Morbid obesity. 2. Reactive arthritis, followed by Dr. Fraser with Rheumatology in [place]. 3. Dislocation of 3 of the right fingers. 4. Asthma. 5. Pneumonia in August 2018. SOCIAL HISTORY: She lives in [place] with her parents. She is disabled. Has never been . PREVIOUS SURGICAL HISTORY: Listed as none. FAMILY HISTORY: Mother and father are present. Father has hypertension with borderline diabetes. Mother has hearing loss with morbid obesity. ALLERGIES: Listed as aspirin, naproxen, Xylitol, bees, chocolate, Mountain Dew, and Powerade. HOME MEDICATIONS: Listed as: 1. Folic acid. 2. Meloxicam. 3. Methotrexate. REVIEW OF SYSTEMS: Unable to obtain except per chart and per family members at the bedside. The patient is currently intubated and sedated. MOST RECENT VITAL SIGNS: Patient's last temperature 97.6 degrees, blood pressure 97/57, heart rate 84, respirations 18. She is currently on Levophed, to be titrated for mean arterial pressure of greater than 65. LABS: Sodium 140, potassium 6.2, chloride 100, CO2 23, BUN 31, creatinine 1.8, glucose 144, anion gap is 17, calcium 8.8, albumin 2.9. White count 19.39, hemoglobin 14.4, hematocrit 57.4, platelet count 170,000. ABGs on 65% BiPAP were pH 7.01, CO2 106, pO2 95, bicarbonate 19.5. She is now on 55% FiO2. Repeat labs this afternoon indicate a potassium now down to 5.4, BUN of 33 with a creatinine of 1.9 at 3 p.m. Albumin is down to 2.2. PHYSICAL EXAMINATION: General: This is a 43-year-old white female who is currently sedated on the ventilator. No response. Morbidly obese, lying flat. HEENT: Atraumatic, normocephalic. Pupils are equal and reactive to light, though slow. Mucous membranes are dry. Oral ET tube is in place. Neck: Unable to observe JVD. Trachea appears to be midline. Cardiovascular: Distant heart sounds. Regular rate and rhythm on the monitor. Unable to appreciate any murmur or gallop. Lungs: Diminished breath sounds bilateral. Patient is sedated with ventilatory support. No accessory muscles appear to be in use. Abdomen: Large. Right side appears to have positive bowel sounds. Left is more hypoactive. Genitourinary: Beck catheter is in place with diminished urine output. Integumentary: Warm and dry. No diaphoresis. Wounds noted behind the right knee, left groin, under the abdominal fold. There is an erythematous area to the left groin all the way around to the right pannus. There is drainage from the right knee wound, white yellow looking in color with foul odor. Groin and buttocks not inspected, though these are reddened in appearance to the inner thigh area. Neurological: As mentioned above. Extremities: Positive for edema, trace to 1+. Right leg does seem to be slightly larger than left. Edema goes up into the abdominal cavity. ASSESSMENT AND PLAN: 1. Acute kidney injury. This appears to be multifactorial. Patient has been hypotensive. More than likely, patient is in septic shock. She is currently receiving antibiotics. These are to be renally dosed. She has ventilatory support. Urine electrolytes indicate that the patient is on the dry side. She has received a L of normal saline bolus, though chest x-ray shows possible pulmonary edema with pneumonia. We will hold steady and re- evaluate labs and chest x-ray in the morning. 2. Panniculitis and cellulitis. Patient has received intravenous antibiotics of vancomycin, Zosyn, and Diflucan. Blood cultures are positive for coagulase negative staphylococcus. Wound Care has been consulted. 3. Electrolytes and acid-base balance. Patient's hyperkalemia has responded well to D50 insulin, albuterol, and calcium gluconate. Labs are ordered in the morning. 4. Fever with leukocytosis, secondary to her cellulitis. Patient has been given Tylenol and antibiotics. 5. Anemia. This is actually in target. I would like to thank you for allowing us to follow with this patient. Dictated by JAILYN Cat for Ben Graves MD Data reviewed, discussed with Maryjane Fatima on 03/15/19. I agree with the above assessment and plan of care. cc: JAILYN Cat MD [facility]
[2019-03-15] MEDS: FOLIC ACID PO SCH (20:16)
[2019-03-15] MEDS: PEPCID IV SCH (21:40)
[2019-03-15] MEDS: SODIUM CHLORIDE 0.9% INJ SCH (21:40)
[2019-03-15] MEDS: SODIUM BICARBONATE 8.4% 150 MEQ in D5W 1,000 ML IV SCH (21:43)
--- NOTE | 2019-03-15 21:49 | PULMONOLOGY CONSULTATION ---
DATE: 03/15/2019 REASON FOR CONSULTATION: Respiratory failure. HISTORY OF PRESENT ILLNESS: Ms. Martin is a 43-year-old white female with morbid obesity and a BMI of 95 who presented to the emergency room with a 5-day history of increasing pain, erythema and drainage of her abdominal pannus. Exam revealed erythema, drainage, and with some satellite lesions on the right thigh. The patient was short of breath with any movement. The patient was admitted to the hospital for additional evaluation and treatment. She has had progressive increase in oxygen requirements and became unresponsive this morning with a pH of 6.99, pCO2 of 111, PO2 of 293. PAST MEDICAL HISTORY: 1. Morbid obesity as per above. 2. Reactive arthritis. 3. Asthma. 4. History of pneumonia. 5. Hypertension. 6. Borderline diabetes. SOCIAL HISTORY: She is a nondrinker and a nonsmoker. She lives with her parents. FAMILY HISTORY: Noncontributory to current presentation. REVIEW OF SYSTEMS: Cannot be obtained. PHYSICAL EXAMINATION: General: Reveals an obese white female on mechanical ventilation. Vital signs: Blood pressure is 127/78, heart rate 74, respiratory rate 21, oxygen saturation 95%. Weight 506 pounds. HEENT: Pupils are equal reactive. Oropharynx appears clear. Neck: Thick and supple. Chest: Reveals distant breath sounds bilaterally with scattered rhonchi. Cardiac Exam: Increased rate. Regular rhythm. Abdomen: Obese and soft with a large pannus which is slightly foul smelling with erythema and drainage. Extremities: Obese. LABORATORIES: Arterial blood gas prior to intubation pH 7.01, pCO2 of 106, PO2 of 95 with a lactate of 1.6. Arterial blood gas after intubation, pH 7.14, pCO2 of 66, PO2 of 386. Chemistries: Sodium 132, potassium 5.4, chloride 95, bicarbonate 20, BUN 33, creatinine 1.9, albumin 2.2. White blood count 19.4 thousand, hemoglobin 14.4, platelet count 170,000. Microbiology reveals 1 blood culture positive for gram-negative staphylococci and her wound culture growing strep agalactiae. Chest x-ray reveals infiltrate in the left lung and lingula. The pulmonary vasculature does not appear to be exceptionally prominent. IMPRESSION: A 43-year-old with 1. Soft tissue skin infection/cellulitis of her large panniculus. 2. Acute hypoxemic respiratory failure. 3. Acute hypercapnic respiratory failure. 4. Septic shock. 5. Acute renal failure. 6. Elevated central venous pressure. PLAN: A 43-year-old with problems outlined above. The patient is hypotensive and is on vasopressors. She has minimal urine output. Her central venous pressure is elevated, which is not unexpected but it would be difficult to gauge left ventricular filling pressures. She does not appear to be in overt pulmonary edema and she does not appear to have significant dilation of her pulmonary vasculature. It is not clear that the central venous pressure is accurate or is of significant benefit in guiding resuscitation. At this juncture, her AA gradient is not excessive and her PO2 is well over 300 and; therefore, I would be in favor of giving a fluid challenge. When she improves, I would anticipate she would undergo significant diuresis. RECOMMENDATIONS: 1. Intubation and initiation of mechanical ventilation (successfully completed by Anesthesia). 2. Fluid bolus this evening. 3. Continue broad-spectrum antibiotics. 4. Continue gastric acid suppression and deep vein prophylaxis. 5. Prognosis is guarded to poor given her current presentation and comorbidity. TIME SPENT IN CRITICAL CARE MANAGEMENT: One hour. cc: Ulisses oCok MD
[2019-03-16] MEDS: DIPRIVAN 1% 1,000 MG/100 ML BOTTLE IV SCH ×12 (00:13→22:39)
[2019-03-16] MEDS: SODIUM BICARBONATE 8.4% 150 MEQ in D5W 1,000 ML IV SCH (01:44)
[2019-03-16] MEDS: DUONEB (A & A) INH PRN ×3 (03:39→11:47)
[2019-03-16 04:42] LABS: EOS# 0.01 X1000 (0.0-0.7); EOS% 0.1 % (0.0-10.0); HEMATOCRIT 41.3 % (37.0-47.0); HEMOGLOBIN 12.9 g/dL (12.0-16.0); IMM GRAN# 0.03 X1000 (0.0-0.04); IMM GRAN% 0.3 % (0.0-0.5); LYMPH# 0.61 X1000 (1.2-3.4); LYMPH% 5.5 % (20.5-51.1); MCH 27.3 PG (27-31); MCHC 31.2 g/dL (33-37); MCV 87.5 FL (81-99); MONO# 0.03 X1000 (0.11-0.59); MONO% 0.3 % (1.7-9.3); MPV 11.4 FL (7.4-10.4); NEUT# 10.43 X1000 (1.4-6.5); NEUT% 93.8 % (42.2-75.2); PLT 125 X1000 (130-400); RBC 4.72 XMIL (4.2-5.4); RDW 20.5 % (11.5-14.5); WBC 11.11 X1000 (4.8-10.8)
[2019-03-16 04:42] LABS: ALLEN TEST YES; BE -0.5 mmoll (-3.0-3.0); BLOOD TYPE ARTERIAL; HCO3-(ACT) 24.5 mmoll (20.0-26.0); METHB 1.1 % (0.0-1.5); MODALITY VENTILATOR; O2(CT) 20.4 mL/dL (15.0-23.0); O2HB 96.8 % (95.0-99.0); PCO2(98.6) 48 mmHg (35-45); PO2(98.6) 152 mmHg (60-100); SAMPLE BLOOD; SAO2 98.7 % (95.0-100.0); SRATE 18 BPM; THB 14.8 g/dL (11.5-17.4); TVOL 500 mL; pH(98.6) 7.34 (7.35-7.45)
[2019-03-16 05:09] LABS: ALB/GLOB RATIO 0.4; ALBUMIN 1.7 g/dL (3.5-5.0); CREATININE 1.5 mg/dL (0.5-0.9); POTASSIUM 4.1 mmol/L (3.5-5.1); TOTAL BILIRUBIN 0.7 mg/dL (0.20-1.00); TOTAL PROTEIN 5.7 g/dL (6.3-8.3)
[2019-03-16] MEDS: NS 500 ML IV SCH (05:41)
--- NOTE | 2019-03-16 07:37 | Diag Imaging Result Doc PS360 ---
EXAM: CHEST-PORTABLE HISTORY: respiratory failure TECHNIQUE: Chest single view COMPARISON: 03/16/2019 FINDINGS: Suboptimal exam due to the patient's body habitus and technique. No definite change in the endotracheal or nasogastric tubes. There are dense bilateral infiltrates. Very little other information can be discerned. IMPRESSION: No improvement. Electronically signed by Kehinde Fernandes 03/16/2019 7:35 AM
--- NOTE | 2019-03-16 07:39 | Diag Imaging Result Doc PS360 ---
EXAM: CHEST/ABD TUBE PLACEMENT HISTORY: NG placement TECHNIQUE: Portable chest single view COMPARISON: 03/15/2019 FINDINGS: Poor inspiratory effort. There are bilateral infiltrates. Endotracheal tube is unchanged. There is a nasogastric tube overlying the esophagus and stomach. This appears to be in good position. IMPRESSION: Nasogastric tube overlies the stomach. Electronically signed by Kehinde Fernandes 03/16/2019 7:37 AM
[2019-03-16] MEDS: ROCEPHIN 1 GM in NS 50 ML IV SCH (08:09)
--- NOTE | 2019-03-16 08:14 | EKG Report ---
Test Performed on : 03/16/2019 07:44:01 AM Test Reason : dyspnea Blood Pressure : / mmHG Vent. Rate : 079 BPM Atrial Rate : 079 BPM P-R Int : 104 ms QRS Dur : 074 ms QT Int : 348 ms P-R-T Axes : 009 180 172 degrees QTc Int : 399 ms Sinus rhythm. with short NY Right axis deviation Possible Right ventricular hypertrophy Nonspecific ST and T wave abnormality Abnormal ECG When compared with ECG of 15-MAR-2019 07:46, (Unconfirmed) NY interval has decreased Criteria for Septal infarct are no longer present Nonspecific T wave abnormality, worse in Lateral leads Confirmed by Brandon Bull MD ([id number]) on 03/16/2019 4:56:30 PM
[2019-03-16] MEDS: LEVOPHED 8 MG in D5 1/2 NS 250 ML IV SCH (09:11)
[2019-03-16] MEDS: HEPARIN SUBQ SCH (09:51)
[2019-03-16] MEDS: PEPCID IV SCH ×2 (09:51→20:41)
[2019-03-16] MEDS: SODIUM CHLORIDE 0.9% INJ SCH ×2 (09:51→20:41)
[2019-03-16] MEDS: ZYVOX 600 MG/D5W 600 MG/300 ML IVPB IV SCH ×2 (09:52→20:41)
[2019-03-16] MEDS ORDERED: SODIUM BICARBONATE 8.4% 150 MEQ in D5W 1,000 ML IV SCH (10:15)
[2019-03-16] MEDS ORDERED: HEPARIN IV PRN (10:23)
[2019-03-16] MEDS ORDERED: HEPARIN 25,000 UNITS/D5W 25,000 UNIT/250 ML IV.SOLN IV SCH ×2 (10:30→20:42)
[2019-03-16] MEDS: MYCOSTATIN POWDER TOP SCH ×2 (10:37→20:48)
[2019-03-16] MEDS: ALBUTEROL NEB INH SCH ×4 (11:47→23:40)
[2019-03-16 13:12] LABS: PROTIME 15.3 Seconds (11.0-16.0)
[2019-03-16 13:13] LABS: INR 1.12
--- NOTE | 2019-03-16 14:42 | NEPHROLOGY PROGRESS NOTE ---
DATE: 03/16/2019 Date Seen: 03/16/2019 Time Seen: 06 SUBJECTIVE: Ms. Martin remains ventilator dependent with sedation on Levophed drip. OBJECTIVE: Her most recent vital signs: Temperature is 96.9 degrees, blood pressure 82/45, heart rate 82 respirations 20. She is on 60% FiO2. Last recorded saturation is 94%. She has had 5469 in 1999 40 out. She is 4 L positive in the last 24-48 hours. LABORATORY DATA: Sodium 132, potassium 4.1, chloride 95, CO2 23, BUN 35, creatinine 1.5, glucose 243. Her anion gap is 14, calcium is 8, her albumin 1.7. White count 11.1, hemoglobin 12.9, hematocrit 46.3 with a platelet count of 125,000. ABGs pH 7.34, CO2 48, PO2 152, bicarb 24.5 with a lactate of 2.8 on 60% FiO2. She has a TSH of 0.72. PHYSICAL EXAMINATION: General: This is a 43-year-old white female resting quietly in bed. She remains ventilator dependent, sedated, nonresponsive. No acute distress. HEENT: Normocephalic, atraumatic. Conjunctiva pale. Pupils are equal reactive to light, though sluggish. Mucous membranes are dry. Oral ET tube is in place. Neck: Unable to observe JVD. Trachea appears to be midline. Cardiovascular: Distant heart sounds. Unable to determine extra heart sounds. S1, S2 noted. Sinus rhythm on the monitor. Lungs: Diminished breath sounds bilateral with ventilatory support. Abdomen: Unable to auscultate any bowel sounds at this time. She has an NG tube to low intermittent suction. Genitourinary: Beck catheter is in place. She has had 740 mL out the Beck with a total of 2040 out with NG tube. Integumentary: Her back and buttocks have not been inspected. She has wounds noted to the right knee and left groin under the abdominal folds. Erythematous area to the left groin around her entire pannus. Drainage noted from the right knee wound. Odor remains. Groin and buttocks not inspected though she does have redness in her inner aspect of her bilateral thighs. Neurological: As mentioned above. Extremities: Have 1+ edema which goes up into her abdomen. ASSESSMENT AND PLAN: 1. Acute kidney injury. This again is multifactorial. Patient remains hypotensive with Levophed drip. Her BUN and creatinine have slowly improved with assistance from fluid volume resuscitation. She has had adequate urine output that has increased over the last 24 hours. No indications for dialysis intervention. 2. Electrolytes and acid-base balance. She has mildly low sodium. No indications for changes of her IV fluids. Her anion gap is closing. Her metabolic acidosis has improved. 3. Anemia. This is actually in target. 4. Respiratory failure. Remains on ventilatory support. Followed by Dr. Cook. 5. Panniculitis and cellulitis with questionable sepsis. Patient remains on vancomycin, Zosyn and Diflucan. These are all renally dosed. Her wound culture again has grown strep agalactiae a group B blood. Cultures have grown coag-negative staphylococcus. Followed by primary care. We will check renal dosing. I would like to thank you for allowing us to follow with this patient. Dictated by JAILYN Cat for Ben Graves MD Face to face encounter, data reviewed, discussed with Maryjane Fatima on 03/16/19. I agree with the above assessment and plan of care. cc: JAILYN Cat MD [facility]
--- NOTE | 2019-03-16 15:50 | PROGRESS NOTE ---
DATE: 03/16/2019 INTERVAL HISTORY: The patient remains intubated and sedated. On discussion with nursing, they report some mild hypothermia overnight, which is now improved. No other acute events overnight. REVIEW OF SYSTEMS: Unable to obtain secondary to patient's mental status. LABORATORY DATA: WBC 11.1, hemoglobin 12.9, hematocrit 41.3, platelets 125. D dimer 2.24. INR 1.1. PTT 35.5. ABG with pH 7.34, pCO2 48, pO2 152 on ventilator with 60% FIO2. Sodium 132, potassium 4.1, BUN 35, creatinine 1.5, glucose 243. TSH 0.72. Cortisol 52.9. IMAGING: Chest x-ray somewhat limited due to patient's body habitus; essentially stable from previous. VITAL SIGNS: Temperature 95.9 to 98.1, pulse 81, respirations 18, blood pressure 124/70, O2 saturation 97% on ventilator. PHYSICAL EXAMINATION: General: No acute distress. Intubated and sedated. Vital Signs: As above. HEENT: Normocephalic, atraumatic. Neck: No cervical adenopathy. Cardiovascular: Regular rate and rhythm. No murmurs noted. Pulmonary: Exam somewhat limited by body habitus but what can be heard is clear. Abdomen: Marked obesity noted. Right body wall/pannus/abdomen markedly erythematous with significant swelling and peau d' orange appearance. Swelling appears to extend down into the right lower extremity. Bowel sounds difficult to auscultate. Extremities: Peripheral pulses decreased but present. Right leg with 3+ edema. Left leg with 1+ edema. Neurologic: Limited by sedation. Withdraws to noxious stimuli, but that is about it. Psychiatric: Sedated. Skin: Large area of erythema and induration on the right abdomen as above. Some mild erythema, right dorsal foot. Otherwise, no new lesions noted. ASSESSMENT AND PLAN: 1. Sepsis secondary to panniculitis/cellulitis. Cultures growing Streptococcus agalactiae. Blood cultures with likely contaminants, coagulase negative Staphylococcus. Antibiotics with Rocephin. Monitor closely. The area involved is quite extensive. If it fails to improve, may have to try to obtain some kind of imaging, but this may be problematic as ultrasound has been ineffective because of her body habitus and she is too big for CT or MRI. The patient remains on Levophed for septic shock. 2. Acute hypoxic respiratory failure secondary to pneumonia and Pickwickian syndrome. Patient with saturations down into the 80s. Was intubated yesterday. Arterial blood gases with improved hypercapnia and somewhat improved oxygenation. Pulmonary on board and managing vent. Monitor closely. Continue Zyvox and Rocephin. 3. Super morbid obesity with Pickwickian syndrome. Patient with body mass index of 95.7. Strongly contributing to her issues as above. Will discuss weight loss when patient is extubated. 4. Hyperkalemia, resolved. Continue to monitor. 5. Acute kidney injury. Patient with creatinine trending up to 1.9 after admission. Ultrasound unremarkable. Creatinine improved to 1.5 today. Monitor urine output and kidney function. 6. Right lower extremity edema and elevated D dimer. The swelling may be due to extensive infection of the right body wall/pannus but some concern for deep venous thrombosis. Patient with limited to no mobility at home. This has significantly increased the swelling on the right compared to the left. D dimer elevated at 2.2. Ultrasound was obtained but tech was unable to evaluate veins because of her super morbid obesity. Given elevated D dimer, likely obligated to treat empirically for now. Will place on heparin drip and monitor. 7. Metabolic encephalopathy. The patient reportedly was confused prior to intubation. Presumably CO2 narcosis. Will see what she does once she is extubated. 8. Hyponatremia, mild and stable. Monitor for now. [facility]
--- NOTE | 2019-03-16 17:49 | PULMONOLOGY PROGRESS NOTE ---
DATE: 03/16/2019 SUBJECTIVE: The patient is sedated. She is on mechanical ventilation. She remains on vasopressors for blood pressure support. OBJECTIVE: Blood pressure 91/46, heart rate 81, respiratory rate 18, oxygen saturation 96%. HEENT: Pupils are equal and reactive. Oropharynx appears clear. Neck: Supple. Chest: Coarse rhonchi bilaterally. Cardiac: S1, S2. Abdomen: Obese and soft with erythema around the lower edge of the pannus. Extremities: Mild edema. LABORATORY AND DIAGNOSTIC DATA: White blood count 11.11, hemoglobin 12.9, platelet count 125,000. Arterial blood gas reveals a pH 7.34, pCO2 of 48, PO2 of 152, with a lactate of 2.8. No new microbiology data. Chest x-ray is difficult to interpret due to body habitus. IMPRESSION: A 43-year-old with: 1. Acute hypoxemic respiratory failure. 2. Acute hypercapnic respiratory failure. 3. Septic shock. 4. Acute renal failure. 5. Soft tissue skin infection/cellulitis of her panniculus. 6. Morbid obesity with protein-calorie malnutrition. DISCUSSION: A 43-year-old with problems outlined above. She did tolerate the fluid bolus yesterday. She has had slight decrease in vasopressor requirements. I will give her an additional 1 L of bicarbonate fluid bolus this morning. RECOMMENDATIONS: 1. Additional fluid bolus as per above. 2. Continue broad-spectrum antibiotics. 3. Continue full ventilatory support. 4. Will initiate tube feeds and ask Nutrition to help with protein-calorie malnutrition. TIME SPENT: Critical care, 30+ minutes. cc: Ulisses Cook MD
[2019-03-16] MEDS ORDERED: LASIX IV ONE (19:10)
[2019-03-16] MEDS: MUCOMYST 20% INH SCH (19:15)
[2019-03-16] MEDS: FOLIC ACID PO SCH (20:41)
--- NOTE | 2019-03-16 22:34 | PROGRESS NOTE ---
DATE: 03/16/2019 SUBJECTIVE: Patient continues on ventilator and sedated. She continues on Levophed for blood pressure support and this is being titrated downward. OBJECTIVE: Vital signs: Blood pressure 104/52, heart rate 86, with ECG monitor showing sinus rhythm. Oxygen saturation on 94% with FiO2 of 50% on ventilator. Central venous pressure ranging from 20 to 24. Chest: Clear to auscultation anteriorly. Cardiac Exam: Reveals distant heart sounds and a regular rate and rhythm without appreciable murmur or gallop. Abdomen: Obese and soft with erythema around lower edge of pannus. Extremities: Demonstrate mild edema. LABORATORY DATA: Includes a white blood cell count 11.11, hematocrit 41.3, hemoglobin 12.9, platelet count 125,000. Sodium 132, potassium 4.1, chloride 95, carbon dioxide 23, BUN 35, creatinine 1.5. Glucose 243. IMPRESSION: 1. Respiratory failure, hypercapnic. Chest x-ray demonstrates prominent left-sided infiltrate suggesting pneumonia. 2. Right-sided congestive heart failure suggested by consistently elevated central venous pressure. 3. Recent cellulitis involving the lower abdominal wall with associated bacteremia with Staphylococcus. Streptococcal species also cultured from the wound. 4. Acute renal dysfunction. 5. Massive obesity. 6. Cannot exclude right lower extremity deep vein thrombosis. RECOMMENDATIONS: 1. Continue supportive care. 2. Diurese. 3. Agree with anticoagulation with heparin. 4. Ultimately, the patient would potentially benefit from transesophageal echocardiography prior to extubation to better assess cardiac performance and valvular heart disease. cc: Salazar Cooper MD
[2019-03-17] MEDS: DIPRIVAN 1% 1,000 MG/100 ML BOTTLE IV SCH ×10 (01:04→23:05)
[2019-03-17 01:58] LABS: HEMATOCRIT 40.4 % (37.0-47.0); LYMPH% 11.3 % (20.5-51.1); MCH 26.7 PG (27-31); MCHC 32.2 g/dL (33-37); MCV 83.1 FL (81-99); MONO% 0.3 % (1.7-9.3); MPV 11.1 FL (7.4-10.4); NEUT% 86.9 % (42.2-75.2); PLT 110 X1000 (130-400); RBC 4.86 XMIL (4.2-5.4); RDW 19.7 % (11.5-14.5); WBC 7.69 X1000 (4.8-10.8)
[2019-03-17 01:59] LABS: BASO# 0.01 X1000 (0.0-0.2); BASO% 0.1 % (0.0-0.8); EOS# 0.08 X1000 (0.0-0.7); IMM GRAN# 0.03 X1000 (0.0-0.04); IMM GRAN% 0.4 % (0.0-0.5); LYMPH# 0.87 X1000 (1.2-3.4); MONO# 0.02 X1000 (0.11-0.59); NEUT# 6.68 X1000 (1.4-6.5)
[2019-03-17 02:47] LABS: ALB/GLOB RATIO 0.7; ALBUMIN 2.3 g/dL (3.5-5.0); CALCIUM 8.1 mg/dL (8.8-10.2); CREATININE 1.6 mg/dL (0.5-0.9); POTASSIUM 4.5 mmol/L (3.5-5.1); TOTAL BILIRUBIN 0.65 mg/dL (0.20-1.00); TOTAL PROTEIN 5.4 g/dL (6.3-8.3)
[2019-03-17] MEDS: ALBUTEROL NEB INH SCH ×6 (03:23→23:13)
[2019-03-17 04:38] LABS: ALLEN TEST YES; BE 2.6 mmoll (-3.0-3.0); BLOOD TYPE ARTERIAL; HCO3-(ACT) 26.9 mmoll (20.0-26.0); METHB 0.8 % (0.0-1.5); O2(CT) 20.3 mL/dL (15.0-23.0); O2HB 96.2 % (95.0-99.0); PO2(98.6) 116 mmHg (60-100); SAMPLE BLOOD; SAO2 98.2 % (95.0-100.0); SRATE 18 BPM; THB 14.9 g/dL (11.5-17.4); TVOL 500 mL; pH(98.6) 7.33 (7.35-7.45)
[2019-03-17 04:40] LABS: MODALITY VENTILATOR; PCO2(98.6) 57 mmHg (35-45)
[2019-03-17] MEDS: NS 500 ML IV SCH ×2 (05:28→20:35)
--- NOTE | 2019-03-17 06:40 | Diag Imaging Result Doc PS360 ---
EXAM: CHEST-PORTABLE HISTORY: respiratory failure TECHNIQUE: Chest single view COMPARISON: 03/16/2019 FINDINGS: Suboptimal exam due to the patient's body habitus. Endotracheal and nasogastric tubes appear to be in good position. Heart is enlarged and there is pulmonary edema. There may be underlying pneumonia as well. IMPRESSION: Persistent bilateral infiltrates although the lungs are better expanded on the current exam. Electronically signed by Kehinde Fernandes 03/17/2019 6:38 AM
[2019-03-17] MEDS: LEVOPHED 8 MG in D5 1/2 NS 250 ML IV SCH ×2 (07:02→23:06)
[2019-03-17] MEDS: MUCOMYST 20% INH SCH ×3 (07:33→19:35)
--- NOTE | 2019-03-17 07:40 | EKG Report ---
Test Performed on : 03/17/2019 06:53:15 AM Test Reason : dyspnea Blood Pressure : / mmHG Vent. Rate : 096 BPM Atrial Rate : 096 BPM P-R Int : 134 ms QRS Dur : 082 ms QT Int : 346 ms P-R-T Axes : 058 183 041 degrees QTc Int : 437 ms Normal sinus rhythm. Right superior axis deviation Possible Right ventricular hypertrophy Possible Septal infarct , age undetermined Abnormal ECG When compared with ECG of 16-MAR-2019 07:44, TX interval has increased. Possible septal infarct is new Confirmed by Brandon Bull MD ([id number]) on 03/20/2019 11:28:10 AM
[2019-03-17] MEDS: ROCEPHIN 1 GM in NS 50 ML IV SCH (08:00)
[2019-03-17] MEDS: ZYVOX 600 MG/D5W 600 MG/300 ML IVPB IV SCH ×2 (08:09→20:33)
[2019-03-17] MEDS: PEPCID IV SCH ×2 (08:18→20:34)
[2019-03-17] MEDS: SODIUM CHLORIDE 0.9% INJ SCH ×2 (08:18→20:33)
[2019-03-17] MEDS: MYCOSTATIN POWDER TOP SCH ×2 (09:55→20:35)
[2019-03-17] MEDS: HEPARIN 25,000 UNITS/D5W 25,000 UNIT/250 ML IV.SOLN IV SCH (13:47)
--- NOTE | 2019-03-17 15:25 | NEPHROLOGY PROGRESS NOTE ---
DATE: 03/17/2019 Date Seen: 03/17/2019 Time Seen: 06:30 SUBJECTIVE: Ms. Martin is resting quietly in bed. She is ventilator dependent with sedation. OBJECTIVE: Vital Signs: Her most recent vital signs: Temperature 97.7 degrees, blood pressure 102/59, heart rate 76, respirations are 18. She is on O2 at 50% FiO2. Last recorded saturation 92%. She has had 3990 in 2420 out. The patient is currently 5.5 L positive. LABORATORY DATA: Sodium 134, potassium 4.5, chloride 96, CO2 25, BUN 37, creatinine 1.6, glucose 161. Her anion gap is 13, calcium 8.1, albumin 2.3. White count 7.67, hemoglobin 13, hematocrit 40.4 with a platelet count of 110,000. Her PTT is 135. ABGs, pH 7.33, CO2 of 57, PO2 116, bicarb 26.9, with a lactate of 2, at 50% FiO2. PHYSICAL EXAMINATION: General: This is a 43-year-old white female resting quietly in bed. She appears chronically ill. She is in no acute distress. Skin: Warm and dry. HEENT: Normocephalic, atraumatic. Conjunctivae pale. Pupils are equal and reactive the light, slightly sluggish. Mucous membranes are dry. Oral ET tube is in place. Unable to observe JVD. Trachea appears midline. Cardiovascular: Distant heart sounds S1, S2 noted. Lungs: Diminished breath sounds with ventilatory support. Abdomen: Unable to auscultate bowel sounds NG tube is currently to tube feedings at 40 mL an hour. Integumentary: Back and buttocks not inspected. She does continue with wounds to the right knee, left groin, abdominal folds, erythematous area to left and right groin and the entire under site of her pannus. Drainage noted to her right knee. Right lower extremity is more red today. Abdominal area continues to be odiferous. Redness continues on inner aspects of bilateral thighs. Neurologic: As mentioned above. Extremities: 1+ edema lower extremities. ASSESSMENT AND PLAN: Acute kidney injury. The patient has had fluid resuscitation with Levophed support. Her creatinine is now down to 1.6. Adequate urine output has been documented. Her electrolytes are stable. We will sign off at this time and remain available if indicated during her hospital stay I would like to thank you for allowing us to follow with this patient. Dictated by JAILYN Cat for Ben Graves MD Data reviewed, discussed with Maryjane Fatima on 03/17/19. I agree with the above assessment and plan of care. cc: JAILYN Cat MD [facility]
--- NOTE | 2019-03-17 17:19 | PROGRESS NOTE ---
DATE: 03/17/2019 INTERVAL HISTORY: The patient remains intubated and sedated. Afebrile overnight. No acute events overnight. Respiratory status roughly stable. The patient remains on Levophed for hypotension. REVIEW OF SYSTEMS: Unable to obtain secondary to patient's mental status. LABS: WBC 6.9, hemoglobin 13, hematocrit 40.4, platelets 110,000, PTT 91.1. ABG with pH 7.3, pCO2 52, PO2 116 on 50% FiO2 via vent. Sodium 134, potassium 4.5, bicarb 25, BUN 37, creatinine 1.6, glucose 161. IMAGING: Chest x-ray largely stable with persistent bilateral infiltrates. VITALS: T-max 97.8 degrees, pulse 93, respirations 24, blood pressure 112/65, O2 saturation 92% on 50% FiO2. PHYSICAL EXAMINATION: General: No acute distress, intubated and sedated. Vitals: As above. HEENT: Normocephalic, atraumatic. No cervical adenopathy. Cardiovascular: Regular rate and rhythm. No murmurs noted. Pulmonary exam: Significantly limited by body habitus, but clear within those limits. Abdomen: Marked obesity noted. Right body wall/pannus/abdomen remains erythematous, although slightly less so. Erythema remains dense in the area extending down to the right hip and superior thigh. Bowel sounds remain difficult to auscultate. Extremities: Peripheral pulses decreased, but present. Right leg with stable 3+ edema. Left leg with 1+ edema. Neurologic: Limited by sedation. Pupils equal, round, reactive to light. Withdraws to noxious stimuli. Psychiatric: Sedated as above. Skin: Large area of erythema and induration on the right abdomen, hip and superior thigh as above. Previously noted erythema of the right foot appears improved. No new lesions noted. Some stable breakdown posteriorly primarily on the right around the area of erythema. ASSESSMENT AND PLAN: 1. Sepsis, likely secondary to panniculitis/cellulitis. The cultures growing Streptococcus agalactiae. Initial blood cultures with likely contaminant, coag-negative staph. Remains on antibiotics with Rocephin and Zyvox. The infection of the pannus appears to be improving somewhat, but still with pretty dense erythema of the hip in the leg. Monitor closely. Remains on Levophed for septic shock. 2. Septic shock, likely secondary to #1. Remains on Levophed as above. Monitor closely in the intensive care unit. 3. Acute hypoxic and acute on likely chronic hypercapnic respiratory failure. Likely secondary to pneumonia and pickwickian syndrome. Remains intubated. Still some hypercapnia, which is slightly worsened today, but oxygenation slightly improved. On antibiotics as above with Zyvox and Rocephin. Continue to monitor closely. 4. Super morbid obesity with pickwickian syndrome. Patient with body mass index of 95.7, strongly contributing to issues as above. 5. Hyperkalemia, resolved. Monitor labs. 6. Acute kidney injury. The patient with creatinine trending up to 1.9 after admission. Came back down to 1.5 and essentially stable since then. Getting some fluids with bicarb today. She got additional fluids with bicarb yesterday. Metabolic acidosis does look better, but no change in kidney function today. Monitor closely. 7. Possible right lower extremity deep venous thrombosis. Patient with significant asymmetric edema of the right lower extremity. May be due to an extensive infection and edema of the right body wall pannus hip, but some concern for deep vein thrombosis. D-dimer elevated at 2.2. Ultrasound was unable to evaluate her veins because of her super morbid obesity. Treating with heparin drip empirically. 8. Metabolic encephalopathy. The patient reportedly confused prior to intubation. Possibly CO2 narcosis versus delirium related to underlying infection. We will see how her mental status does after she is extubated. 9. Hyponatremia, mild, somewhat improved. Monitor, but no need for acute intervention at this time.
[2019-03-17] MEDS: FOLIC ACID PO SCH (20:33)
[2019-03-17] MEDS: LASIX IV SCH (20:33)
--- NOTE | 2019-03-17 20:57 | PROGRESS NOTE ---
DATE: 03/17/2019 SUBJECTIVE: The patient continues sedated on ventilator. She remains on Levophed for blood pressure support. OBJECTIVE: Blood pressure 107/51, heart rate 89, oxygen saturation 91% to 92% on ventilator with FIO2 of 55%. Jugular venous distention cannot be appreciated. Central venous pressure reported to be at least 25. Chest is clear to auscultation anteriorly. Cardiac exam reveals a regular rate and rhythm without appreciable murmur or gallop. Extremities demonstrate edema. DIAGNOSTIC DATA: Chest x-ray is technically difficult. Left-sided pneumonia again evident. Cannot exclude pulmonary edema. LABORATORY DATA: Includes a white blood cell count of 7.69, hematocrit 40.4, hemoglobin 13.0, platelet count 110,000. Sodium 134, potassium 4.5, chloride 96, carbon dioxide 25, BUN 37, creatinine 1.6, glucose 161. Albumin 2.3. IMPRESSION: 1. Respiratory failure, hypercapnic and hypoxemic. Chest x-ray demonstrates prominent left-sided infiltrate suggesting pneumonia. Pulmonary edema cannot be excluded by difficult chest x-ray. 2. Elevated central venous pressure, suggesting right-sided congestive heart failure. Suspect she may very well have chronic pulmonary hypertension. 3. Recent cellulitis involving lower abdominal wall, with associated bacteremia with staphylococcus species. 4. Acute renal dysfunction. Suspect there may be a component of cardiorenal syndrome in light of significantly elevated central venous pressure. 5. Massive obesity. 6. Cannot exclude right lower extremity deep venous thrombosis. RECOMMENDATIONS: 1. Continue supportive care. 2. Diurese with IV Lasix 40 mg b.i.d. 3. Once the patient has improved significantly, consideration should be given to pursuit of transesophageal echocardiography prior to the extubation to better assess cardiac performance and valvular heart disease. cc: Salazar Cooper MD
[2019-03-18] MEDS: HEPARIN 25,000 UNITS/D5W 25,000 UNIT/250 ML IV.SOLN IV SCH ×3 (01:20→21:29)
[2019-03-18] MEDS: DIPRIVAN 1% 1,000 MG/100 ML BOTTLE IV SCH ×5 (01:50→21:27)
[2019-03-18] MEDS: ALBUTEROL NEB INH SCH ×6 (03:49→23:15)
[2019-03-18 04:35] LABS: BASO# 0.01 X1000 (0.0-0.2); BASO% 0.4 % (0.0-0.8); EOS# 0.15 X1000 (0.0-0.7); EOS% 5.6 % (0.0-10.0); HEMATOCRIT 39.7 % (37.0-47.0); HEMOGLOBIN 12.5 g/dL (12.0-16.0); IMM GRAN# 0.16 X1000 (0.0-0.04); IMM GRAN% 5.9 % (0.0-0.5); LYMPH# 0.47 X1000 (1.2-3.4); LYMPH% 17.5 % (20.5-51.1); MCH 26.5 PG (27-31); MCHC 31.5 g/dL (33-37); MCV 84.3 FL (81-99); MPV 11.9 FL (7.4-10.4); NEUT% 70.6 % (42.2-75.2); PLT 90 X1000 (130-400); RBC 4.71 XMIL (4.2-5.4); WBC 2.69 X1000 (4.8-10.8)
[2019-03-18 04:59] LABS: ALLEN TEST YES; BE 0.9 mmoll (-3.0-3.0); BLOOD TYPE ARTERIAL; HCO3-(ACT) 25.6 mmoll (20.0-26.0); O2(CT) 16.8 mL/dL (15.0-23.0); O2HB 94.8 % (95.0-99.0); PO2(98.6) 102 mmHg (60-100); SAMPLE BLOOD; SAO2 97.4 % (95.0-100.0); SRATE 18 BPM; THB 12.5 g/dL (11.5-17.4); TVOL 500 mL
[2019-03-18 04:59] LABS: POTASSIUM 4.8 mmol/L (3.5-5.1)
[2019-03-18 05:00] LABS: ALB/GLOB RATIO 0.5; CALCIUM 8.3 mg/dL (8.8-10.2); CREATININE 1.6 mg/dL (0.5-0.9); TOTAL BILIRUBIN 0.86 mg/dL (0.20-1.00)
[2019-03-18 05:00] LABS: MODALITY VENTILATOR; PCO2(98.6) 58 mmHg (35-45)
[2019-03-18] MEDS ORDERED: HEPARIN 25,000 UNITS/D5W 25,000 UNIT/250 ML IV.SOLN IV SCH (06:36)
--- NOTE | 2019-03-18 06:59 | Diag Imaging Result Doc PS360 ---
EXAM: CHEST-PORTABLE 03/18/2019 HISTORY: respiratory failure TECHNIQUE: AP portable at 0509 COMMENT: The endotracheal tube tip is at the thoracic inlet and the NG tube passes below the diaphragm. There is hazy opacity throughout both lungs consistent with pulmonary edema. The patient is rotated to the left and there also may be some volume loss on the left with shift of the mediastinum. Overall the appearance of the chest has not changed significantly since 03/17/2019. IMPRESSION: Pulmonary edema. Atelectasis left lower lobe. Electronically signed by Sergio Vega 03/18/2019 6:57 AM
--- NOTE | 2019-03-18 07:30 | PULMONOLOGY PROGRESS NOTE ---
DATE: 03/17/2019 SUBJECTIVE: The patient is sedated on mechanical ventilation. She continues to require Levophed. OBJECTIVE: Vital Signs: Heart rate 94, respiratory rate 20, oxygen saturation 92%, blood pressure 112/55. HEENT: Pupils are equal and reactive. Oropharynx appears clear. Neck: Supple. Chest: Reveals coarse rhonchi bilaterally. Cardiac: S1-S2. Abdomen: Obese and soft. Extremities: Reveal generalized edema and increased adiposity. LABORATORIES: Sodium 134, potassium 4.5, chloride 96, bicarbonate 25, BUN 37, creatinine 1.6, glucose 161. White blood count 17.69, hemoglobin 13.0, platelet count 110,000. IMPRESSION: A 43-year-old with: 1. Acute hypoxic respiratory failure. 2. Acute hypercapnic respiratory failure. 3. Acute renal failure. 4. Septic shock. 5. Soft tissue skin infection. 6. Morbid obesity. 7. Protein calorie malnutrition. PLAN: 1. Continue IV fluids. 2. Continue broad-spectrum antibiotics. 3. Continue nutrition. Appreciate the spinning machine operator's recommendations. 4. Prognosis is guarded given her comorbidities. TIME SPENT: With critical care management 30+ minutes. cc: Ulisses Cook MD
[2019-03-18] MEDS: MUCOMYST 20% INH SCH ×2 (07:39→19:18)
--- NOTE | 2019-03-18 07:50 | EKG Report ---
Test Performed on : 03/18/2019 07:09:23 AM Test Reason : dyspnea Blood Pressure : / mmHG Vent. Rate : 084 BPM Atrial Rate : 084 BPM P-R Int : 140 ms QRS Dur : 074 ms QT Int : 326 ms P-R-T Axes : 065 144 127 degrees QTc Int : 385 ms Normal sinus rhythm. Right axis deviation Possible Right ventricular hypertrophy Septal infarct (cited on or before 15-MAR-2019) Nonspecific T wave abnormality Inferolateral leads Abnormal ECG When compared with ECG of 17-MAR-2019 06:53, (Unconfirmed) Questionable change in initial forces of Septal leads Nonspecific T wave abnormality, worse in Inferior leads Nonspecific T wave abnormality now evident in Lateral leads QT has shortened Confirmed by Jorgito COVINGTON, Brandon ([id number]) on 03/20/2019 12:11:42 PM
[2019-03-18] MEDS: ROCEPHIN 1 GM in NS 50 ML IV SCH (09:38)
[2019-03-18] MEDS: SODIUM CHLORIDE 0.9% INJ SCH ×2 (09:39→21:28)
[2019-03-18] MEDS: ZYVOX 600 MG/D5W 600 MG/300 ML IVPB IV SCH ×2 (09:39→21:27)
[2019-03-18] MEDS: MYCOSTATIN POWDER TOP SCH ×2 (09:39→21:30)
[2019-03-18] MEDS: PEPCID IV SCH ×2 (09:39→21:28)
[2019-03-18] MEDS: LASIX IV SCH ×2 (09:39→21:28)
--- NOTE | 2019-03-18 10:32 | PROGRESS NOTE ---
DATE: 03/18/2019 SUBJECTIVE: Patient continues sedated on ventilator. OBJECTIVE: Blood pressure 104/56, heart rate 88, oxygen saturation 93% on ventilator with FiO2 of 55%. Jugular venous distention cannot be appreciated.Chest: Clear to auscultation anteriorly. Cardiac: Exam reveals a regular rate and rhythm without appreciable murmur or gallop. Extremities: Demonstrate edema. DIAGNOSTIC: Chest x-ray is reviewed and is technically difficult. There is an infiltrate in the left lung suggesting pneumonia. Cannot exclude pulmonary edema. LABORATORY DATA: Sodium 135, potassium 4.8, chloride 95, carbon dioxide 27, BUN 36, creatinine 1.6, glucose 157 and albumin 2.0. IMPRESSION: 1. Respiratory failure, hypercapnic and hypoxemia with chest x-ray showing left-sided pneumonia. Pulmonary edema cannot be excluded. 2. Elevated central venous pressure suggesting right-sided congestive heart failure. Consider possible pulmonary hypertension. 3. Massive obesity. 4. Recent cellulitis involving abdominal wall with associated bacteremia with Staphylococcus species. 5. Acute renal dysfunction. 6. Cannot exclude right lower extremity DVT. 7. Hypoalbuminemia. It is noteworthy that her cholesterol is also low. She very well may have chronic liver disease related to fatty liver possibly even cirrhosis. RECOMMENDATIONS: 1. Continue supportive care. 2. Continue efforts to diurese. Discontinue IV fluids. 3. Once patient improved significantly, consideration to be given to pursue transesophageal echocardiography prior to extubation to better assess cardiac performance and valvular heart disease. cc: Salazar Cooper MD
[2019-03-18] MEDS: LEVOPHED 8 MG in D5 1/2 NS 250 ML IV SCH (17:55)
--- NOTE | 2019-03-18 21:12 | PROGRESS NOTE ---
DATE: 03/18/2019 INTERVAL HISTORY: The patient remains intubated, sedated, on pressors with Levophed, although at slightly lower dose. Remains afebrile. No acute events overnight. REVIEW OF SYSTEMS: Unable to obtain secondary to patient's mental status. LABORATORY: WBC 2.6, hemoglobin 12.5, hematocrit 39.7, platelets 90,000. ABG with pH 7.3, pCO2 of 58, PO2 of 102, on 55% FiO2 on ventilator. Sodium 135, potassium 4.8, BUN 36, creatinine 1.6, bicarbonate 27, glucose 157. AST 211, ALT 49. IMAGING: Chest x-ray, continued bilateral opacities, possibly pulmonary edema. PHYSICAL EXAMINATION: Vitals: Temperature max 98.1 degrees, pulse 84, respirations 32, blood pressure 89/39, O2 saturation 93% on ventilator. General: No acute distress. Intubated and sedated. HEENT: Normocephalic, atraumatic. Moist mucous membranes. Cardiovascular: Regular rate and rhythm. No murmurs noted. Pulmonary: Exam somewhat limited by body habitus. Perhaps a few scattered rhonchi, but reasonable air entry bilaterally. abdomen: Marked obesity, stable. Right body wall/pannus/abdomen remains erythematous, although continues to improve slowly. Erythema and induration of right hip and upper thigh also slightly improved. Bowel sounds remain difficult to auscultate. Extremities: Peripheral pulses decreased, but present. Right leg with slightly improved 2 to 3+ edema. Left leg with 1+ edema. Neurologic: Limited by sedation. Pupils equal, round, reactive to light. Withdraws to noxious stimuli only. Psychiatric: Sedated as above. Skin: Massive area of erythema and induration, as above, with slow improvement. Multiple areas of excoriation and limited stage skin breakdown approximately stable. No new lesions noted. ASSESSMENT AND PLAN: 1. Septic shock, likely secondary to panniculitis/cellulitis and possibly pneumonia. Cultures growing Streptococcus agalactiae. Initial blood cultures with likely contaminant, coag- negative Staphylococcus. Remains on antibiotics with Rocephin and Zyvox. Erythema and induration of pannus, hip, and thigh, continues to improve, although quite slowly. Remains afebrile. Still requiring Levophed for septic shock. 2. Acute hypoxic and acute on likely chronic hypercapnic respiratory failure. Likely secondary to pneumonia versus pulmonary edema and pickwickian syndrome. Remains intubated. Still some hypercapnia, but significantly overbreathing the ventilator, so not a lot of room to improve that. Pulmonology following. Continue antibiotics as above. Cardiology recommending diuresis. Will see if she tolerates that. 3. Super morbid obesity with pickwickian syndrome. Patient with BMI of 95.7. Strongly contributing to issues above. 4. Hyperkalemia, resolved. Monitor labs. 5. Acute kidney injury. Patient's creatinine trended up to 1.9 on admission. With gentle fluids, came down to 1.6. Now off fluids and on diuresis as per Cardiology. Monitor kidney function closely. 6. Possible right lower extremity deep venous thrombosis. Patient with significant asymmetric edema of the right lower extremity. D-dimer elevated at 2.2. Could be due to extensive infection and edema of the right body wall, hip, and thigh, but cannot rule out DVT. Ultrasound attempted, but could not see down to the deep veins. On heparin drip, which we will continue for now, but may have to discontinue if the thrombocytopenia worsens. 7. Leukopenia and thrombocytopenia. Patient with worsening leukopenia and thrombocytopenia. Not quite neutropenic yet. Could be due to Zyvox. If it worsens, may have to change Zyvox to something else. May also have to discontinue heparin drip if thrombocytopenia worsens. No sign of hemolytic anemia. 8. Hyponatremia, mild, essentially stable. No need for acute intervention at this time. 9. Metabolic encephalopathy. Patient reportedly confused prior to intubation. Possibly CO2 narcosis versus delirium related to underlying infection/sepsis. We will observe when or if she is extubated. 10. Transaminitis. Patient with mild increase in AST, ALT, but alkaline phosphatase and bilirubin okay. Will just monitor for now, but may need further evaluation if this continues to worsen. 11. Overall prognosis guarded. Patient remains critically ill. TIME: Approximately 40 minutes of critical care time spent immediately available to the patient, examining patient, reviewing labs, and making medical decisions.
[2019-03-18] MEDS: FOLIC ACID PO SCH (21:28)
[2019-03-19] MEDS: ALBUTEROL NEB INH SCH ×6 (03:33→23:23)
[2019-03-19 04:32] LABS: ALLEN TEST YES; BE 2.9 mmoll (-3.0-3.0); BLOOD TYPE ARTERIAL; HCO3-(ACT) 27.1 mmoll (20.0-26.0); METHB 1.2 % (0.0-1.5); O2(CT) 17.1 mL/dL (15.0-23.0); O2HB 95.2 % (95.0-99.0); PCO2(98.6) 52 mmHg (35-45); PO2(98.6) 109 mmHg (60-100); SAMPLE BLOOD; SAO2 97.9 % (95.0-100.0); SRATE 18 BPM; THB 12.7 g/dL (11.5-17.4); TVOL 500 mL; pH(98.6) 7.36 (7.35-7.45)
[2019-03-19 04:37] LABS: MODALITY VENTILATOR
[2019-03-19] MEDS: DIPRIVAN 1% 1,000 MG/100 ML BOTTLE IV SCH ×3 (05:25→18:03)
[2019-03-19 06:20] LABS: BASO# 0.01 X1000 (0.0-0.2); BASO% 0.3 % (0.0-0.8); HEMATOCRIT 37.1 % (37.0-47.0); HEMOGLOBIN 12.2 g/dL (12.0-16.0); MCH 27.4 PG (27-31); MCHC 32.9 g/dL (33-37); MCV 83.4 FL (81-99); PLT 69 X1000 (130-400); RBC 4.45 XMIL (4.2-5.4); RDW 19.9 % (11.5-14.5); WBC 3.13 X1000 (4.8-10.8)
[2019-03-19 06:44] LABS: ALB/GLOB RATIO 0.4; ALBUMIN 1.7 g/dL (3.5-5.0); CALCIUM 8.3 mg/dL (8.8-10.2); CREATININE 1.6 mg/dL (0.5-0.9); POTASSIUM 5.3 mmol/L (3.5-5.1); TOTAL BILIRUBIN 1.02 mg/dL (0.20-1.00)
[2019-03-19 06:52] LABS: LYMPHS 40 % (21-51); SEGS 56 % (42-75)
[2019-03-19] MEDS: MUCOMYST 20% INH SCH ×2 (07:50→19:23)
--- NOTE | 2019-03-19 08:20 | Diag Imaging Result Doc PS360 ---
EXAM: CHEST-PORTABLE INDICATION: respiratory failure TECHNIQUE: One view COMPARISON: 03/18/2019 FINDINGS: As on the previous study, the patient is significantly rotated toward the left. Support tubes and lines are in stable positions. There is a ventral volume loss on the left upper lobe also seen on the previous study. Some of this is due to the rotation of the patient. Bilateral hazy opacity throughout both lungs that probably represents pulmonary edema is stable. No new consolidation is identified. Cardiac silhouette is stable. IMPRESSION: Grossly stable chest. Electronically signed by Paramjit Quiñonez 03/19/2019 8:18 AM
[2019-03-19] MEDS: HEPARIN 25,000 UNITS/D5W 25,000 UNIT/250 ML IV.SOLN IV SCH (08:41)
[2019-03-19] MEDS ORDERED: KAYEXALATE NG ONE (09:19)
[2019-03-19] MEDS: ROCEPHIN 1 GM in NS 50 ML IV SCH (09:22)
[2019-03-19] MEDS: PEPCID IV SCH ×2 (09:27→21:49)
[2019-03-19] MEDS: LASIX IV SCH ×2 (09:28→21:48)
[2019-03-19] MEDS: MYCOSTATIN POWDER TOP SCH ×2 (09:28→21:48)
[2019-03-19] MEDS: ZYVOX 600 MG/D5W 600 MG/300 ML IVPB IV SCH (09:28)
[2019-03-19] MEDS: SODIUM CHLORIDE 0.9% INJ SCH ×2 (09:28→21:49)
--- NOTE | 2019-03-19 09:49 | PULMONOLOGY PROGRESS NOTE ---
DATE: 03/18/2019 SUBJECTIVE: The patient is sedated on mechanical ventilation. She remains on vasopressors. OBJECTIVE: Vital Signs: Maximum temperature in the last 24 hours is 98.1 degrees, blood pressure 97/44, heart rate 88, respiratory rate 18, oxygen saturation 95%. HEENT: Pupils appear equal. Oropharynx has some blood present. Neck: Supple. Chest: Reveals coarse rhonchi bilaterally. Cardiac: Distant heart sounds. Normal S1, normal S2. Abdomen: Soft. Extremities: Unchanged. LABORATORY DATA: White blood count 2.69, hemoglobin 12.5, platelet count 90,000. PTT 60.4. Arterial blood gas reveals a pH 7.30, pCO2 of 58, pO2 of 102. Sodium 135, potassium 4.8, chloride 95, BUN 36, creatinine 1.6. AST 211. Total protein 6.0, globulin fraction 2.0. IMAGING: Chest x-ray reveals mild increased markings on the right, there is rotation making it difficult to determine infiltrates on the left, but diffuse infiltration is suspected. IMPRESSION: A 43-year-old with: 1. Morbid obesity and a body mass index approaching 96. 2. Acute hypoxemic respiratory failure. 3. Acute hypercapnic respiratory failure. 4. Septic shock. 5. Acute renal failure. 6. Soft tissue infection of her panniculus. 7. Protein calorie malnutrition. 8. Gastrointestinal bleeding, mouth bleeding is suspected. RECOMMENDATIONS: 1. Continue tube feeds. 2. Continue broad-spectrum antibiotics. 3. Continue full ventilatory support. 4. Recommend decreasing heparin to prophylaxis dosing if the patient continues to bleed. TIME SPENT: Critical care management, greater than 30 minutes. cc: Ulisses Cook MD
[2019-03-19] MEDS: LEVOPHED 8 MG in D5 1/2 NS 250 ML IV SCH (13:06)
[2019-03-19] MEDS ORDERED: VANCOMYCIN IV PER PHARMACY MISC SCH (13:15)
--- NOTE | 2019-03-19 13:34 | CARDIOLOGY PROGRESS NOTE ---
DATE: 03/19/2019 SUBJECTIVE: Ms. Martin is sedated and on the ventilator. OBJECTIVE: The patient is afebrile. Her heart rate is 85, blood pressure 94/56. Her I's and O's are markedly positive over the last several days. Generally, she is in no acute distress. Morbidly obese, on the ventilator, sedated. Cardiovascular: She has distant heart sounds. She has warm and well perfused extremities. Her lung sounds are very distant, seem to be symmetric. Abdomen is soft and nontender. DIAGNOSTIC DATA: Her white count is 3.1, hematocrit 37, platelet count is 69. Her sodium is 134, potassium 5.3, BUN is 40, creatinine 1.6 which is roughly stable. Her AA gradient is 218 which is roughly stable over the last several days. Her FiO2 today is down to 50%. ASSESSMENT: Ms. Martin is a 43-year-old female, morbidly obese, likely with right-sided heart failure and respiratory failure as well as renal dysfunction. PLAN: Currently her volume status is likely hypervolemic. She is on some pressors and likely has right-sided heart dysfunction requiring some volume support. Considering she is not having an escalating O2 requirement, I would likely leave her diuretics where they are, especially considering she is on pressors. Presently, I do not have any acute recommendations. cc: Lobito Joshi MD [facility]OSPITALFredis
[2019-03-19] MEDS: MAXIPIME 1 GM in NS 50 ML IV SCH (14:25)
[2019-03-19] MEDS: VANCOMYCIN 2 GM in NS 500 ML IV SCH (15:18)
--- NOTE | 2019-03-19 19:03 | PROGRESS NOTE ---
DATE: 03/19/2019 INTERVAL HISTORY: The patient remains intubated and sedated. Still on a dose of Levophed at 5. Afebrile overnight. Intermittent small amounts of bleeding from mouth are slightly improved but still occurring. No obvious bleeding elsewhere. REVIEW OF SYSTEMS: Unable to obtain secondary to patient's mental status next. LABS: WBC 3.13, hemoglobin 12.2, hematocrit 37.1, platelets 69,000. PTT 81. ABG with pH 7.36, pCO2 52, PO2 109 on 55% FiO2 via vent. Sodium 134, potassium 5.3, bicarb 25, BUN 40, creatinine 1.6, glucose 127, bilirubin 1.02, AST 171, ALT 49, alkaline phosphatase 94. IMAGING: Chest x-ray with essentially unchanged opacities. VITALS: T-max 97.9 degrees, pulse 85, respirations 21, blood pressure 94/56, O2 saturation 95% on vent. PHYSICAL EXAMINATION: General: Intubated and sedated. No acute distress. Vitals: As above. HEENT: Normocephalic, atraumatic. Still some dried blood in her mouth and around tubing. No active bleeding at the time of my exam. Cardiovascular: Regular rate and rhythm. No murmurs noted. Pulmonary: Exam somewhat limited by body habitus. Has some scattered rhonchi, but further auscultation difficult. Abdomen: Marked obesity, unchanged. Right body wall, pannus and abdomen remains edematous, roughly stable from yesterday, although improved from admission. Erythema and induration of right hip and right upper thigh also roughly stable. Extremities: Peripheral pulses decreased but present. Right leg with minimal improvement in the edema. Neurologic: Limited by sedation. Pupils equal, round, reactive to light. Withdraws to noxious stimuli. Psychiatric: Sedated as above. Skin: Previously noted area of erythema and induration as above. Multiple areas of excoriation and some skin breakdown approximately the same. No new lesions noted. ASSESSMENT AND PLAN: 1. Septic shock, likely secondary to panniculitis, cellulitis and possibly pneumonia. Cultures grew Streptococcus agalactiae. Initial blood cultures are likely contaminant, which was coagulase-negative Staphylococcus. Remains on antibiotics with Rocephin and Zyvox which we plan on continuing. 2. Erythema and induration of pannus, hip and right upper thigh improving very slowly. Remains afebrile, but still requiring Levophed for presumed septic shock. 3. Acute hypoxic and acute on likely chronic hypercapnic respiratory failure. Likely secondary to pneumonia versus pulmonary edema and pickwickian syndrome. Remains intubated and sedated. 4. Hypercapnia somewhat improved. Oxygenation roughly stable. Continue antibiotics as above. Cardiology recommending diuresis so we will decrease IV fluids. Continue tube feeds and monitor. 5. Super morbid obesity with pickwickian syndrome. Patient with BMI of 95.7, contributing to above issue significantly. 6. Acute kidney injury. Patient baseline creatinine 0.8. Trended up to 1.9. Came back down with treatment of sepsis and with IV fluids down to 1.6. It has been roughly stable since then. Uncertain if she still has an aspect of acute tubular necrosis reaction to shock or if this may be her new baseline. Continue to monitor in's and out's. 7. Thrombocytopenia and leukopenia. Leukopenia is actually slightly improved today. However, platelets continue to trend down though. Also still with some occasional small amounts of bleeding from her mouth. In light of this, we will hold heparin for now and monitor. May consider restarting heparin at prophylactic dose of improves. If it continues to worsen, may have to consider changing to Zyvox as it could be causing bone marrow suppression. Hemoglobin and hematocrit remains stable. Only minimal increase in bilirubin. We will check haptoglobin, LDH, but relatively low suspicion for hemolysis at this time. 8. Possible right lower extremity deep venous thrombosis. Patient with significant asymmetric edema of the right lower extremity. D-dimer was elevated to 2.2. Could be due to extensive infection and edema, but could not rule out deep vein thrombosis, so heparin drip was started. Holding heparin drip due to worsening thrombocytopenia and bleeding as above. Monitor closely. 9. Hyponatremia mild, stable. No need for acute intervention at this time. 10. Transaminitis. Patient with mild increase in AST, ALT, bilirubin, but alkaline phosphatase normal. Likely related to infection and shock as above. Monitor. 11. Hyperkalemia. Pretty minimal at this point. We will keep an eye on it and consider Kayexalate if it worsens, but we will just monitor for now. The patient getting Lasix which may also help with this. TIME SPENT: Approximately 35 minutes critical care time spent immediately available to the patient examining patient, reviewing labs and making medical decisions.
--- NOTE | 2019-03-19 21:43 | PULMONOLOGY PROGRESS NOTE ---
DATE: 03/19/2019 SUBJECTIVE: The patient is sedated. She appears to be comfortable on mechanical ventilation. OBJECTIVE: Vital signs: Blood pressure 108/60, heart rate 84, respiratory rate 21, oxygen saturation 95% on mechanical ventilation. She is currently on Levophed. Oropharynx: Reveals some residual maroon blood present in the posterior pharynx. Neck: Is supple. Chest: Reveals coarse rhonchi bilaterally. Cardiac exam: Distant heart sounds. Normal S1, normal S2. Abdomen: Obese and soft with positive bowel sounds. Extremities: Reveal diffuse adiposity. LABORATORIES: Chest x-ray reveals bilateral infiltrates, left much greater than right, with significant distortion due to body habitus. White blood count 3.13, hemoglobin 12.2, platelet count 69,000. Sodium 134, potassium 5.3, chloride 96, bicarbonate 25, BUN 40, creatinine 1.6. Arterial blood gas reveals pH 7.36, pCO2 of 52, PO2 of 109. IMPRESSION: A 43-year-old with 1. Acute hypoxemic respiratory failure. 2. Acute hypercapnic respiratory failure. 3. Morbid obesity. 4. Septic shock. 5. Blood loss anemia. 6. Soft tissue infection of the panniculus. 7. Protein-calorie malnutrition. 8. Relative leukopenia. 9. Thrombocytopenia. PLAN: 1. Hold heparin and discontinue Zyvox with progressive thrombocytopenia. 2. Send PF 4 antibody to rule out heparin-induced thrombocytopenia. Zyvox is suspected. 3. Continue ventilatory support. 4. Continue tube feeds. 5. Overall prognosis is guarded. TIME SPENT IN CRITICAL CARE MANAGEMENT: 30+ minutes. cc: Ulisses Cook MD
[2019-03-19] MEDS: FOLIC ACID PO SCH (21:48)
[2019-03-20] MEDS: MAXIPIME 1 GM in NS 50 ML IV SCH ×2 (00:28→13:39)
[2019-03-20] MEDS: DIPRIVAN 1% 1,000 MG/100 ML BOTTLE IV SCH ×3 (02:30→20:54)
[2019-03-20] MEDS: ALBUTEROL NEB INH SCH ×6 (03:08→22:42)
[2019-03-20 04:33] LABS: ALLEN TEST YES; BE 2.2 mmoll (-3.0-3.0); BLOOD TYPE ARTERIAL; HCO3-(ACT) 26.6 mmoll (20.0-26.0); METHB 0.9 % (0.0-1.5); O2(CT) 16.4 mL/dL (15.0-23.0); O2HB 94.9 % (95.0-99.0); PO2(98.6) 90 mmHg (60-100); SAMPLE BLOOD; SAO2 97.4 % (95.0-100.0); SRATE 18 BPM; THB 12.2 g/dL (11.5-17.4); TVOL 500 mL; pH(98.6) 7.35 (7.35-7.45)
[2019-03-20 04:34] LABS: MODALITY VENTILATOR; PCO2(98.6) 52 mmHg (35-45)
[2019-03-20 07:06] LABS: EOS% 14.7 % (0.0-10.0); HEMATOCRIT 36.4 % (37.0-47.0); HEMOGLOBIN 11.6 g/dL (12.0-16.0); IMM GRAN# 0.05 X1000 (0.0-0.04); IMM GRAN% 7.4 % (0.0-0.5); LYMPH# 0.31 X1000 (1.2-3.4); LYMPH% 45.6 % (20.5-51.1); MCH 26.5 PG (27-31); MCHC 31.9 g/dL (33-37); MCV 83.3 FL (81-99); MONO# 0.01 X1000 (0.11-0.59); MONO% 1.5 % (1.7-9.3); NEUT% 30.8 % (42.2-75.2); PLT 46 X1000 (130-400); RBC 4.37 XMIL (4.2-5.4); RDW 19.3 % (11.5-14.5); WBC 0.68 X1000 (4.8-10.8)
[2019-03-20 07:07] LABS: NEUT# 0.21 X1000 (1.4-6.5)
[2019-03-20 07:12] LABS: ALB/GLOB RATIO 0.4; ALBUMIN 1.9 g/dL (3.5-5.0); CALCIUM 8.6 mg/dL (8.8-10.2); CREATININE 1.8 mg/dL (0.5-0.9); POTASSIUM 5.2 mmol/L (3.5-5.1); TOTAL BILIRUBIN 1.06 mg/dL (0.20-1.00); TOTAL PROTEIN 6.2 g/dL (6.3-8.3)
[2019-03-20 07:25] LABS: D-DIMER 4.38 ug/mLFEU (0.0-0.52)
[2019-03-20] MEDS: MUCOMYST 20% INH SCH ×2 (07:56→20:05)
--- NOTE | 2019-03-20 08:05 | Diag Imaging Result Doc PS360 ---
EXAM: CHEST-PORTABLE INDICATION: respiratory failure TECHNIQUE: One view COMPARISON: 03/19/2019 FINDINGS: The patient is rotated significantly toward the left like the previous study. The support tubes and lines appear to be in stable positions. Bilateral hazy opacity that is worst on the left, is essentially stable. No new consolidation is identified. Cardiac silhouette is stable. IMPRESSION: Stable chest. Electronically signed by Paramjit Quiñonez 03/20/2019 8:02 AM
[2019-03-20 09:39] LABS: ANISOCYTOSIS 1+; BANDS 2 % (0-1); EOS 15 % (1-10); LYMPHS 44 % (21-51); MICROCYTOSIS 1+; MONO 2 % (1-9); SEGS 34 % (42-75); TARGET CELLS 1+
[2019-03-20] MEDS: LOVENOX SUBQ SCH (09:54)
[2019-03-20] MEDS: SODIUM CHLORIDE 0.9% INJ SCH ×2 (09:54→20:54)
[2019-03-20] MEDS: MYCOSTATIN POWDER TOP SCH ×2 (09:54→20:53)
[2019-03-20] MEDS: PEPCID IV SCH ×2 (09:54→20:54)
[2019-03-20] MEDS ORDERED: GRANIX SUBQ ONE (11:46)
[2019-03-20] MEDS: VANCOMYCIN 2 GM in NS 500 ML IV SCH (14:19)
[2019-03-20] MEDS: LEVOPHED 8 MG in D5 1/2 NS 250 ML IV SCH (14:20)
--- NOTE | 2019-03-20 14:54 | PROGRESS NOTE ---
DATE: 03/20/2019 INTERVAL HISTORY: The patient remains intubated, sedated. Remains on Levophed with slightly increased dose requirements. Still some occasional small amounts of blood from her mouth, but this appears to have decreased. No other acute events. REVIEW OF SYSTEMS: Unable to obtain secondary to patient's mental status. LABS: WBC 0.68, hemoglobin 11.6, hematocrit 36.4, platelets 46,000, neutrophil count 210. Fibrinogen 851. D-dimer 4.38. ABG: PH 7.35, pCO2 52, PO2 90 on 50% FiO2 via vent. Sodium 137, potassium 5.2, BUN 52, creatinine 1.8, glucose 136, bilirubin 1.06, AST 389, ALT 79, alkaline phosphatase 100, LDH 334. VITALS: T-max 99.0, pulse 93, respirations 18, blood pressure 85/43, O2 saturation 95% on ventilator. PHYSICAL EXAMINATION: General: No acute distress, intubated and sedated. Vitals: As above. HEENT: Normocephalic, atraumatic. No cervical adenopathy. Cardiovascular: Regular rate and rhythm. No murmurs noted. Pulmonary: Scattered rhonchi. Abdomen: Marked obesity. Right body wall remains erythematous, although the superior edge continues to improve slowly. Dense erythema and induration of the area around the right hip and superior thigh essentially unchanged. Extremities: Peripheral pulses remain decreased but present. Right leg with slightly improved 3+ edema. Left leg 1+ edema. Neurologic: Pupils equal, round, react to light with occasional spontaneous eye opening. Withdraws to noxious stimuli. Psychiatric: Sedated as above. Skin: Ongoing large area of erythema and induration on the as above. Stable multiple small areas of skin breakdown. No new lesions noted. ASSESSMENT AND PLAN: 1. Septic shock secondary to panniculitis/cellulitis and possibly pneumonia. Cultures growing strep agalactiae. Initial blood cultures with likely contaminant, coag-negative staph. Was on antibiotics with Rocephin and Zyvox. Changed to vancomycin and cefepime on 03/19 because of concerns that the Zyvox might be causing bone marrow suppression as below. Still requiring Levophed at slightly increased dose today. Continue to monitor closely. Remains critically ill in the ICU. 2. Acute hypoxic and acute on likely chronic hypercapnic respiratory failure, likely secondary to pneumonia and pickwickian syndrome but may have an aspect of diastolic congestive heart failure as well. Remains intubated. Still some hypercapnia on ABG, but fairly mild and suspect this is close to her baseline, as far as that goes. Oxygenation largely stable. Some minimal improvement over the last few days. Continue antibiotics as above and monitor. Has been on Lasix for attempted diuresis but holding currently because of bump in creatinine. 3. Super morbid obesity with pickwickian syndrome. Patient with initial body mass index 75.7. Strongly contributing to issues as above. 4. Acute kidney injury. The patient with creatinine trending up to 1.9 after admission. Came back down to 1.5, mostly stable for quite a while after that, but after a few days of Lasix, it has begun to climb up again to 1.8. Holding Lasix currently. Continue to monitor closely. Strict I's and O's. 5. Thrombocytopenia and leukopenia/neutropenia. Leukopenia improved slightly yesterday but markedly worse today. Now into severe neutropenia. Already on broad-spectrum antibiotics. Changed Zyvox as that is the most likely culprit. Fibrinogen high and reticulocyte count quite low and only minimal decrease in hemoglobin and hematocrit so hemolysis unlikely. Heparin on hold as well. Monitor for signs or symptoms of bleeding. We will transfuse platelets if any significant bleeding develops. Has had minimal amounts of blood from mouth, but this is actually decreased. 6. Possible right lower extremity deep venous thrombosis. Patient has had significant asymmetric edema of the right lower extremity. Initial D-dimer elevated at 2.2. Repeat D-dimer elevated to 4.38. The patient was started on heparin empirically as ultrasound could not visualize her veins. However, heparin now on hold because of worsening severe thrombocytopenia. Monitor. 7. Hyponatremia, improved. Monitor. 8. Transaminitis. Patient with further slight increase in LFTs. Suspect this is the effect of her underlying septic shock on her liver. Monitor. 9. Hyperkalemia. Pretty minimal and actually slightly improved from yesterday. Continue to monitor but no need for acute intervention at this time. If it is higher tomorrow, we will administer Kayexalate. 10. Approximately 40 minutes critical care time spent immediately available to the patient examining patient, reviewing labs and making medical decisions.
[2019-03-20 15:41] LABS: PLT 31 X1000 (130-400)
[2019-03-20 15:42] LABS: EOS% 12.7 % (0.0-10.0); HEMATOCRIT 37.7 % (37.0-47.0); HEMOGLOBIN 11.9 g/dL (12.0-16.0); LYMPH# 0.39 X1000 (1.2-3.4); LYMPH% 54.9 % (20.5-51.1); MCH 26.5 PG (27-31); MCHC 31.6 g/dL (33-37); MONO% 1.4 % (1.7-9.3); NEUT# 0.22 X1000 (1.4-6.5); RBC 4.49 XMIL (4.2-5.4); WBC 0.71 X1000 (4.8-10.8)
[2019-03-20 15:43] LABS: EOS# 0.09 X1000 (0.0-0.7); MONO# 0.01 X1000 (0.11-0.59)
[2019-03-20 16:16] LABS: EOS 16 % (1-10); LYMPHS 40 % (21-51); MONO 4 % (1-9); SEGS 28 % (42-75)
[2019-03-20 16:17] LABS: ANISOCYTOSIS 1+; LARGE PLATELETS OCCASIONAL
[2019-03-20] MEDS: FOLIC ACID PO SCH (20:52)
--- NOTE | 2019-03-20 21:35 | PULMONOLOGY PROGRESS NOTE ---
DATE: 03/20/2019 SUBJECTIVE: The patient is sedated. She appears to be comfortable. OBJECTIVE: Vital Signs: BP 95/54, heart rate 87, respiratory rate 18, oxygen saturation 95% on 100% FiO2. She remains on Levophed. HEENT: Pupils are equal and reactive. Oropharynx has probable blood clot in the posterior pharynx. This was not dislodged due to previous bleeding. Neck: Is supple. Chest: Reveals coarse rhonchi bilaterally. Cardiac exam: S1-S2. Abdomen: Is obese and soft. She continues to have excoriation and extensive erythema around the base of the pannus and up and into the skin fold and in the right leg which is fiery red. LABORATORIES: Sodium 137, potassium 5.2, chloride 96, bicarbonate 26, BUN 52, creatinine 1.8. White blood count 0.68, hemoglobin 11.6, platelet count 46,000. Arterial blood gas pH 7.35, pCO2 of 52, PO2 of 90. IMPRESSION: 1. 43-year-old with super morbid obesity. 2. Acute hypoxemic and acute hypercapnic respiratory failure. 3. Ongoing septic shock. 4. Soft tissue infection of the panniculus. 5. Protein-calorie malnutrition. 6. Pancytopenia with change of antibiotics yesterday. PLAN: 1. Continue current antibiotic regimen. 2. We will give a single dose of Neupogen today, given the severe leukopenia. 3. Continue full ventilatory support. 4. Continue tube feeds. 5. Prognosis is guarded to poor. TIME SPENT IN CRITICAL CARE MANAGEMENT: 30+ minutes. cc: Ulisses Cook MD
[2019-03-21] MEDS: MAXIPIME 1 GM in NS 50 ML IV SCH ×2 (01:09→13:22)
[2019-03-21] MEDS: LEVOPHED 8 MG in D5 1/2 NS 250 ML IV SCH ×2 (02:35→18:13)
[2019-03-21] MEDS: ALBUTEROL NEB INH SCH ×6 (03:29→23:14)
[2019-03-21 04:36] LABS: ALLEN TEST YES; BE 1.9 mmoll (-3.0-3.0); BLOOD TYPE ARTERIAL; HCO3-(ACT) 26.4 mmoll (20.0-26.0); METHB 0.5 % (0.0-1.5); O2(CT) 15.8 mL/dL (15.0-23.0); O2HB 97.3 % (95.0-99.0); PO2(98.6) 128 mmHg (60-100); SAMPLE BLOOD; SAO2 99.1 % (95.0-100.0); SRATE 18 BPM; THB 11.4 g/dL (11.5-17.4); TVOL 500 mL; pH(98.6) 7.31 (7.35-7.45)
[2019-03-21 04:38] LABS: MODALITY VENTILATOR; PCO2(98.6) 58 mmHg (35-45)
[2019-03-21] MEDS: DIPRIVAN 1% 1,000 MG/100 ML BOTTLE IV SCH ×3 (06:05→18:14)
--- NOTE | 2019-03-21 07:06 | Diag Imaging Result Doc PS360 ---
EXAM: CHEST-PORTABLE 03/21/2019 HISTORY: respiratory failure TECHNIQUE: AP portable at 0510 COMMENT: There is cardiomegaly. There is diffuse interstitial and some alveolar opacity bilaterally similar in appearance to the previous study of 03/20/2019. There has been no appreciable change since 03/19/2019. IMPRESSION: Pulmonary edema plus minus pneumonia. Electronically signed by Sergio Vega 03/21/2019 7:03 AM
[2019-03-21] MEDS: MUCOMYST 20% INH SCH ×2 (08:14→19:53)
[2019-03-21] MEDS: PEPCID IV SCH ×2 (08:52→20:30)
[2019-03-21] MEDS: SODIUM CHLORIDE 0.9% INJ SCH (08:52)
[2019-03-21] MEDS: LOVENOX SUBQ SCH (08:52)
[2019-03-21] MEDS: MYCOSTATIN POWDER TOP SCH ×2 (08:53→20:30)
[2019-03-21 09:01] LABS: ALB/GLOB RATIO 0.5; CALCIUM 8.2 mg/dL (8.8-10.2); CREATININE 1.8 mg/dL (0.5-0.9); POTASSIUM 5.6 mmol/L (3.5-5.1); TOTAL BILIRUBIN 1.2 mg/dL (0.20-1.00); TOTAL PROTEIN 6.3 g/dL (6.3-8.3)
[2019-03-21 09:05] LABS: BASO# 0.01 X1000 (0.0-0.2); EOS# 0.04 X1000 (0.0-0.7); EOS% 8.2 % (0.0-10.0); HEMATOCRIT 36.2 % (37.0-47.0); HEMOGLOBIN 11.4 g/dL (12.0-16.0); IMM GRAN# 0.07 X1000 (0.0-0.04); IMM GRAN% 14.3 % (0.0-0.5); LYMPH# 0.31 X1000 (1.2-3.4); LYMPH% 63.3 % (20.5-51.1); MCH 26.8 PG (27-31); MCHC 31.5 g/dL (33-37); MCV 85.2 FL (81-99); MONO# 0.01 X1000 (0.11-0.59); MPV 11.3 FL (7.4-10.4); NEUT# 0.05 X1000 (1.4-6.5); NEUT% 10.2 % (42.2-75.2); PLT 64 X1000 (130-400); RBC 4.25 XMIL (4.2-5.4); RDW 19.5 % (11.5-14.5); WBC 0.49 X1000 (4.8-10.8)
[2019-03-21] MEDS ORDERED: KAYEXALATE PEG ONE (12:10)
--- NOTE | 2019-03-21 14:01 | PROGRESS NOTE ---
DATE: 03/21/2019 INTERVAL HISTORY: The patient remains intubated and sedated and on Levophed at 7. No further obvious bleeding. No other acute events. REVIEW OF SYSTEMS: Unable to obtain secondary to patient's mental status. LABORATORIES: WBC 0.49, hemoglobin 11.4, hematocrit 36.2, platelets 64,000, with absolute neutrophil count 50. IMAGING: Chest x-ray roughly stable. VITALS: Temperature maximum is 99.2 degrees, pulse 90, respirations 29, blood pressure 89/56, O2 saturation 92% on mechanical ventilator. PHYSICAL EXAMINATION: General: No acute distress. Remains intubated and sedated. Vitals: As above. HEENT: Normocephalic, atraumatic. Neck: No cervical adenopathy. Cardiovascular: Regular rate and rhythm. No murmurs noted. Pulmonary: Scattered rhonchi remain. Abdomen: Marked obesity. Continued very slow improvement in erythema of right body wall, hip, and superior thigh. Extremities: Peripheral pulses decreased, but present. Right leg is slowly improving, 2 to 3+ edema. Left leg 1+ edema. Neurologic: Pupils equal, round, and reactive to light. Withdraws to noxious stimuli. No obvious focal deficits. Psychiatric: Sedated as above. Skin: Large area of erythema and induration of right lower body wall, hip, and right thigh. This does continue to improve slowly with the most improvement being in the pannus. Multiple areas of skin breakdown, varying in thickness, worst in the body folds. ASSESSMENT AND PLAN: 1. Septic shock secondary to panniculitis/cellulitis and possibly pneumonia. Cultures growing Streptococcus agalactiae. Initial blood cultures with likely contaminant, coagulase-negative Staphylococcus. Initially on antibiotics with Rocephin and Zyvox. Antibiotics changed on 03/19/2019 to vancomycin and cefepime because of concerns that the Zyvox might be causing bone marrow suppression. Still requiring Levophed at roughly stable dose. Continue to monitor closely. Remains critically ill in the ICU. 2. Acute hypoxic and acute on likely chronic hypercapnic respiratory failure. Secondary to pneumonia and pickwickian syndrome and diastolic congestive heart failure. Remains intubated. Still hypercapnia on ABG with minor day-to-day variations, but relatively stable and likely baseline. Oxygenation with very slow improvement over the last several days. Continue antibiotics as above and monitor. Was on Lasix for few days, but this has been on hold for a couple days because of increasing creatinine. If creatinine remains stable, may try restarting Lasix tomorrow. 3. Super morbid obesity with pickwickian syndrome. Patient with initial Body Mass Index 95.7. Strongly contributing to issues as above. 4. Acute kidney injury. Patient with creatinine which trended up to 1.9 after admission. It came back 1.5. After several days of Lasix therapy, it again, trended back up to 1.8. Lasix is currently being held and creatinine stable at 1.8 again today. We will continue to hold Lasix for one more day and see what it does. 5. Thrombocytopenia and leukopenia/neutropenia. Still with severe neutropenia. Remains on broad- spectrum antibiotics as above. Suspect Zyvox as the cause. Fibrinogen was high and reticulocyte count was low and hemoglobin and hematocrit have been fairly stable so hemolysis unlikely. Heparin remains on hold because of severe thrombocytopenia. Given oozing of blood from mouth previously and worsening platelet count, we did transfuse her 2 units of platelets yesterday. She does appear to have had appropriate increase dose, so maybe she is starting to turn around. Hematology is involved and giving G-CSF. 6. Possible right lower extremity deep venous thrombosis. Patient had significant asymmetric edema of the right lower extremity. Initial D-dimer 2.2. Repeat D-dimer 4.38. The patient was started on heparin drip empirically as ultrasound could not visualize her veins. Heparin was discontinued once thrombocytopenia became severe because of ongoing, although slow, bleeding from the mouth. Continues to be a concern, although swelling is significantly less asymmetric than what it was. Asymmetric swelling may have been due to significant inflammation related to right-sided infection. 7. Hyponatremia, improved. Monitor. 8. Transaminitis, likely related to ongoing infection. Continue to monitor. 9. Hyperkalemia worsens today. We will go ahead and give some Kayexalate and monitor. COMPLEXITY: Approximately 35 minutes of critical care time was spent immediately available to the patient, examining patient, reviewing laboratories, and making medical decisions.
[2019-03-21] MEDS: VANCOMYCIN 2 GM in NS 500 ML IV SCH (16:01)
[2019-03-21 16:59] LABS: INR 1.14; IRON SATURATION 66 %; PROTIME 15.5 Seconds (11.0-16.0); TIBC 145 ug/dL; TOTAL IRON 96 ug/dL (49-151); UNBOUND IRON 49 ug/dL (112-346)
[2019-03-21 17:00] LABS: PTT 35.9 Seconds (22.3-41.8)
[2019-03-21 17:20] LABS: RETIC% 0.08 % (0.8-2.1)
[2019-03-21] MEDS: DUONEB (A & A) INH PRN (19:53)
[2019-03-21] MEDS: FOLIC ACID PO SCH (20:30)
[2019-03-21] MEDS ORDERED: KAYEXALATE PO ONE (21:34)
[2019-03-22] MEDS: MAXIPIME 1 GM in NS 50 ML IV SCH ×2 (00:42→13:03)
[2019-03-22] MEDS: LEVOPHED 8 MG in D5 1/2 NS 250 ML IV SCH ×3 (01:17→22:03)
[2019-03-22] MEDS: ALBUTEROL NEB INH SCH ×6 (03:30→23:51)
[2019-03-22] MEDS: DIPRIVAN 1% 1,000 MG/100 ML BOTTLE IV SCH ×4 (03:42→23:47)
[2019-03-22 04:36] LABS: ALLEN TEST YES; BE 2.5 mmoll (-3.0-3.0); BLOOD TYPE ARTERIAL; HCO3-(ACT) 26.9 mmoll (20.0-26.0); METHB 1.3 % (0.0-1.5); O2(CT) 16.2 mL/dL (15.0-23.0); PO2(98.6) 148 mmHg (60-100); SAMPLE BLOOD; SAO2 98.5 % (95.0-100.0); SRATE 18 BPM; THB 11.8 g/dL (11.5-17.4); TVOL 500 mL; pH(98.6) 7.33 (7.35-7.45)
[2019-03-22 04:37] LABS: MODALITY VENTILATOR; PCO2(98.6) 56 mmHg (35-45)
[2019-03-22 06:18] LABS: EOS# 0.05 X1000 (0.0-0.7); EOS% 10.6 % (0.0-10.0); HEMATOCRIT 35.2 % (37.0-47.0); HEMOGLOBIN 11.1 g/dL (12.0-16.0); LYMPH# 0.37 X1000 (1.2-3.4); LYMPH% 78.7 % (20.5-51.1); MCH 26.7 PG (27-31); MCHC 31.5 g/dL (33-37); MCV 84.6 FL (81-99); MONO# 0.01 X1000 (0.11-0.59); MONO% 2.1 % (1.7-9.3); MPV 11.7 FL (7.4-10.4); NEUT% 8.6 % (42.2-75.2); PLT 45 X1000 (130-400); RBC 4.16 XMIL (4.2-5.4); RDW 19.2 % (11.5-14.5); WBC 0.47 X1000 (4.8-10.8)
[2019-03-22 06:30] LABS: ALB/GLOB RATIO 0.4; ALBUMIN 1.8 g/dL (3.5-5.0); CALCIUM 8.8 mg/dL (8.8-10.2); CREATININE 1.6 mg/dL (0.5-0.9); POTASSIUM 5.1 mmol/L (3.5-5.1); TOTAL BILIRUBIN 1.46 mg/dL (0.20-1.00); TOTAL PROTEIN 6.1 g/dL (6.3-8.3)
[2019-03-22] MEDS: MUCOMYST 20% INH SCH ×2 (07:23→19:39)
--- NOTE | 2019-03-22 07:24 | Diag Imaging Result Doc PS360 ---
EXAM: CHEST-PORTABLE INDICATION: respiratory failure TECHNIQUE: One view COMPARISON: 03/21/2019 FINDINGS: Support tubes and lines are in stable positions. Bilateral consolidations are again noted, worst on the left. There is no significant changes compared to previous study. No new consolidation is identified. Cardiac silhouette is stable. IMPRESSION: Stable chest. Electronically signed by Paramjit Quiñonez 03/22/2019 7:22 AM
[2019-03-22 07:53] LABS: NEUT# 0.04 X1000 (1.4-6.5)
--- NOTE | 2019-03-22 07:54 | PULMONOLOGY PROGRESS NOTE ---
DATE: 03/21/2019 SUBJECTIVE: The patient is arousable. She has her eyes open. She appears to be interactive. She does not really answer questions. OBJECTIVE: Vital Signs: The patient remains on Levophed for hypotension. Blood pressure 109/57, heart rate 88, respiratory rate 24, oxygen saturation 95%. HEENT: Pupils are equal. Oropharynx evaluation is limited, but residual blood in the posterior pharynx is noted. Neck: Supple. Chest: Coarse rhonchi bilaterally. Cardiac: S1, S2. Abdomen: Obese with extensive panniculitis and erythema noted. Extremities: Increased adiposity. IMAGING AND LABORATORY DATA: Chest x-ray reveals cardiomegaly and diffuse interstitial edema. Sodium 138, potassium 5.6, chloride 96, bicarbonate 28, BUN 69, creatinine 1.8. There is mild elevation in the transaminases. White blood count 0.49, hemoglobin 11.4, platelet count 64,000. IMPRESSION: A 43-year-old with: 1. Acute hypoxemic and acute hypercapnic respiratory failure. 2. Ongoing septic shock. 3. Soft tissue infection of her pannus. 4. Protein calorie malnutrition. 5. Morbid obesity. 6. Pancytopenia. PLAN: 1. Management of pancytopenia per Oncology. 2. Continue full ventilatory support. 3. Continue broad-spectrum antibiotics. 4. Continue tube feeds. 5. Overall prognosis appears to be extremely poor. The Palliative Care nurse has discussed resuscitation status with the family, and she is a DO NOT RESUSCITATE level 2, which appears to be very appropriate. TIME SPENT: Critical care was 30+ minutes. cc: Ulisses Cook MD
[2019-03-22] MEDS: ARIXTRA SUBQ SCH (08:35)
[2019-03-22] MEDS: SODIUM CHLORIDE 0.9% INJ SCH ×2 (08:36→20:15)
[2019-03-22] MEDS: MYCOSTATIN POWDER TOP SCH ×2 (08:36→20:15)
[2019-03-22] MEDS: PEPCID IV SCH ×2 (08:36→20:15)
--- NOTE | 2019-03-22 12:28 | PROGRESS NOTE ---
DATE: 03/22/2019 INTERVAL HISTORY: Her vasopressor support had to be increased yesterday because of hypertension to keep MAP more than 60 mmHg. SUBJECTIVE: The patient opens eyes to strong verbal stimuli, but does not follow commands. Appears to be morbidly obese and currently sedated. VITAL SIGNS: She has been afebrile with temperature of 99.1 degrees, pulse 103, respiratory rate 18, blood pressure 107/69, saturating 95% on mechanical ventilator. PHYSICAL EXAMINATION: General: Morbidly obese. She has a nasogastric tube. She has a right- sided neck central line, endotracheal tube, urine catheter. Oral cavity has a blood clot. No active oozing. Respiratory: Her examination is significantly limited, considering large body habitus, but air entry appears to be bilaterally equal. No wheeze, rhonchi, crackles. Cardiovascular: S1, S2 normal. Regular. No murmur, rub, or gallop. Abdomen: Obese, soft, nontender. Extremities: It is difficult to appreciate edema, though she does have significant swelling of right lower extremity as compared to the left. There is cellulitis which appears dark without any increased warmth, affecting right lateral lower abdominal vein, right wall, right gluteal and right proximal thigh region on the lateral aspect. MICROBIOLOGY: No data except the Streptococcus agalactiae on the wound culture. IMAGING: Chest x-ray today morning suggests stable chest. She does appear to have bilateral consolidations. However, it is not clear considering her large body habitus. ASSESSMENT AND PLAN: 1. Septic shock secondary to cellulitis affecting the right-sided abdominal wall, gluteal and proximal thigh region with wounds growing Streptococcus agalactiae, as well as bilateral possible pneumonia. Continue intravenous vancomycin and intravenous cefepime. Day 1 was March 19. Continue norepinephrine to maintain MAP more than 60 to 65 mmHg. I will add midodrine as tolerated to wean her off pressors. The patient likely would not fit in to CAT scan considering large body habitus to get further evaluation of her pneumonia. 2. Acute hypoxic hypercarbic respiratory failure, likely on baseline hypercapnic respiratory failure secondary to pneumonia and suspected obesity hypoventilation syndrome and diastolic congestive heart failure. Continue mechanical ventilation, propofol sedation as per Pulmonology recommendation. 3. Acute kidney injury because of intravenous Lasix use and septic shock. Follow up daily BMP and follow-up proBNP tomorrow, and decide about further diuresis accordingly. 4. Pancytopenia likely because of intravenous Zyvox use which has been stopped since at least 03/18/2019. She is status post 480 mcg of Neupogen on March 20. Hematology/Oncology on board. Follow-up heparin platelet factor for antibodies. Continue fondaparinux for deep vein thrombosis prophylaxis. Appreciate Hematology/Oncology recommendations. She is status post 2 units of platelet transfusions. 5. Possible right lower extremity deep vein thrombosis. However, ultrasound could not image it properly. I am continuing fondaparinux for deep vein thrombosis prophylaxis, holding therapeutic anticoagulation considering her severe thrombocytopenia, and bleeding and oozing through her oral cavity. 6. Disposition: The patient's condition remains critical. More than 30 minutes of critical care time was spent taking care of this patient. The palliative care team is on board. The patient's code status is do not resuscitate level 2. According to information provided to me by the nursing team, the family would not want any chest compressions or shock if the patient's heart would stop. Plan of care discussed with nursing team. cc: Humphrey Catherine MD
[2019-03-22] MEDS: DUONEB (A & A) INH PRN (15:34)
--- NOTE | 2019-03-22 20:12 | PROGRESS NOTE ---
DATE: 03/22/2019 SUBJECTIVE: The patient continues on ventilator. Sedation has been lightened and she opens eyes to verbal stimuli, but does not follow commands. She continues on vasopressor support. OBJECTIVE: Vital signs: Blood pressure 101/60, heart rate 100, oxygen saturation 94% on ventilator with FiO2 of 60%. Neck: CVP last checked was 25. There is no discernible jugular distention. Chest: Clear to auscultation anteriorly. Cardiac Exam: Reveals a regular rate and rhythm without appreciable murmur or gallop. Extremities: Demonstrate edema. IMAGING: Chest x-ray is reviewed and demonstrates several left-sided infiltrate/consolidation. Some lesser infiltrate/consolidation in the right-sided. Pneumonia is suggested. LABORATORY DATA: Includes white blood cell count of 0.47, hematocrit 35.2, hemoglobin 11.1, platelet count 45,000. Sodium 136, potassium 5.1, chloride 96, carbon dioxide 28, BUN 81, creatinine 1.6. Glucose 163. IMPRESSION: 1. Acute hypoxemic/hypercapnic respiratory failure. 2. Suspected pneumonia and associated sepsis. 3. Soft tissue infection/cellulitis of pannus. 4. Morbid obesity. 5. Pancytopenia. 6. Elevated central venous pressure suggested right-sided congestive heart failure. Suspect likely pulmonary hypertension related to obesity and possible obstructive sleep apnea. 7. Cannot exclude right lower extremity deep vein thrombosis. 8. Hypoalbuminemia. She very well may have chronic liver disease related to fatty liver, possibly even cirrhosis. RECOMMENDATIONS: 1. Continue supportive care. 2. Continue to diurese given elevated central venous pressure. 3. Agree with use of fondaparinux for deep vein thrombosis prophylaxis in light of patient's pancytopenia and thrombocytopenia. cc: Salazar Cooper MD
[2019-03-22] MEDS: FOLIC ACID PO SCH (20:15)
[2019-03-23] MEDS: MAXIPIME 1 GM in NS 50 ML IV SCH ×2 (00:20→12:30)
[2019-03-23] MEDS: ALBUTEROL NEB INH SCH ×6 (03:39→22:58)
[2019-03-23 04:23] LABS: ALLEN TEST YES; BLOOD TYPE ARTERIAL; HCO3-(ACT) 27.2 mmoll (20.0-26.0); METHB 0.9 % (0.0-1.5); PO2(98.6) 115 mmHg (60-100); SAMPLE BLOOD; SAO2 98.6 % (95.0-100.0); SRATE 18 BPM; THB 11.7 g/dL (11.5-17.4); TVOL 500 mL; pH(98.6) 7.32 (7.35-7.45)
[2019-03-23 04:25] LABS: MODALITY VENTILATOR; PCO2(98.6) 59 mmHg (35-45)
--- NOTE | 2019-03-23 04:41 | PULMONOLOGY PROGRESS NOTE ---
CORRECTED REPORT 03/23/2019 DATE: 03/22/2019 SUBJECTIVE: The patient does open her eyes to voice. She appears to stare off into space. OBJECTIVE: Vital signs: Blood pressure 113/76, heart rate 107, respiratory rate 23. Oxygen saturation 95% on 70% FiO2. HEENT: Pupils appear equal. Oropharynx is clear. Neck: Supple. Chest: Reveals distant breath sounds with coarse rhonchi. Cardiac: S1 and S2. Abdomen: Obese and soft. No change in panniculitis. Extremities: Reveal generalized increase in adiposity. LABORATORIES: White blood count 0.47, hemoglobin 11.1, platelet count 45,000. Sodium 136, potassium 5.1, chloride 96, bicarbonate 28, BUN 81, creatinine 1.6. Arterial blood gas reveals a pH 7.33, pCO2 is 56, PO2 of 148. Lactate of 1.9. IMPRESSION: A 43-year-old with 1. Morbid obesity and body mass index approaching 90 on presentation. 2. Ongoing septic shock due to soft tissue infection of her pannus. 3. Protein calorie malnutrition. 4. Morbid obesity. 5. Pancytopenia. 6. Ongoing hypoxemic and hypercapnic respiratory failure. PLAN: 1. Continue broad-spectrum antibiotics, which were changed after she developed pancytopenia. 2. Continue full ventilatory support. 3. Continue tube feeds. 4. DNR level 2. Prognosis is poor. TIME SPENT: in critical care management 30+ minutes. cc: Ulisses Cook MD
[2019-03-23 06:17] LABS: EOS# 0.12 X1000 (0.0-0.7); EOS% 9.8 % (0.0-10.0); HEMATOCRIT 35.8 % (37.0-47.0); HEMOGLOBIN 11.4 g/dL (12.0-16.0); LYMPH# 1.03 X1000 (1.2-3.4); LYMPH% 83.7 % (20.5-51.1); MCH 26.6 PG (27-31); MCHC 31.8 g/dL (33-37); MCV 83.6 FL (81-99); MONO# 0.01 X1000 (0.11-0.59); MONO% 0.8 % (1.7-9.3); NEUT% 5.7 % (42.2-75.2); RBC 4.28 XMIL (4.2-5.4); RDW 19.5 % (11.5-14.5); WBC 1.23 X1000 (4.8-10.8)
[2019-03-23] MEDS: DIPRIVAN 1% 1,000 MG/100 ML BOTTLE IV SCH ×3 (06:19→18:55)
[2019-03-23 06:20] LABS: NEUT# 0.07 X1000 (1.4-6.5); PLT 22 X1000 (130-400)
[2019-03-23 06:40] LABS: ALB/GLOB RATIO 0.4; ALBUMIN 1.7 g/dL (3.5-5.0); CALCIUM 8.7 mg/dL (8.8-10.2); POTASSIUM 4.9 mmol/L (3.5-5.1); TOTAL BILIRUBIN 2.51 mg/dL (0.20-1.00)
[2019-03-23 06:41] LABS: EOS 8 % (1-10); LYMPHS 84 % (21-51); SEGS 8 % (42-75)
--- NOTE | 2019-03-23 06:58 | Diag Imaging Result Doc PS360 ---
EXAM: CHEST-PORTABLE 03/23/2019 HISTORY: respiratory failure TECHNIQUE: AP portable at 0514 COMMENT: There is an endotracheal tube with its tip at the thoracic inlet and an NG tube which passes below the diaphragm presumably into the stomach. There is diffuse pulmonary opacity consistent with pulmonary edema. This appears slightly worse than on 03/22/2019 on the right but essentially unchanged on the left. IMPRESSION: Slightly worsened pulmonary edema. Electronically signed by Sergio Vega 03/23/2019 6:56 AM
[2019-03-23] MEDS: LEVOPHED 8 MG in D5 1/2 NS 250 ML IV SCH ×2 (06:59→15:59)
[2019-03-23] MEDS: MUCOMYST 20% INH SCH ×2 (07:17→19:56)
[2019-03-23] MEDS ORDERED: LASIX IV SCH (09:00)
--- NOTE | 2019-03-23 09:01 | PROGRESS NOTE ---
DATE: 03/23/2019 INTERVAL HISTORY: No acute events overnight. SUBJECTIVE: The patient opens eyes to strong verbal stimuli not in any acute distress. She is intubated, and currently on propofol sedation. VITAL SIGNS: She has been afebrile with temperature of 97.2 degrees, pulse 91, respiratory rate, 21 and blood pressure 110/62. She is saturating 98% on mechanical ventilation. Input and output suggests she has been having daily bowel movements since admission. She is positive 15 L despite receiving oral Lasix. She has not been net negative or at least over the last few days. PHYSICAL EXAMINATION: Morbidly obese. She has NG tube, right-sided neck central line, endotracheal tube, and urine catheter. Oral cavity appears moist. Her examination is significantly limited, considering large body habitus, but air entry appears bilaterally equal in supramammary region. No wheeze or rhonchi.Cardiovascular: S1, S2 normal. Regular. No murmur, rub, or gallop. Abdomen: Obese, soft, and nontender. She has obese appearing bilateral lower extremity with significant swelling of the right lower extremity as compared to left. There is cellulitis affecting right lateral lower abdominal wall, right gluteal and right proximal thigh region on the lateral aspect. I looked at the wound pictures which are suggestive of stage II ulcerations. MICROBIOLOGY: No new data. IMAGING: Chest x-ray is difficult to interpret considering large chest wall. ASSESSMENT AND PLAN: 1. Septic shock secondary to cellulitis affecting right-sided abdominal wall, gluteal and proximal thigh region with Streptococcus agalactiae as well as bilateral possibly pneumonia. Continue intravenous vancomycin and cefepime. Day 1 is 03/19. Continue norepinephrine to maintain MAP more than 65 mmHg. I will add midodrine as tolerated. 2. Acute hypoxic hypercarbic respiratory failure on baseline hypercarbic respiratory failure secondary to pneumonia and suspected obesity hypoventilation syndrome and diastolic congestive heart failure. Continue mechanical ventilation and propofol sedation as per Pulmonology recommendation. Day 1 of intubation was 03/15. 3. Acute kidney injury in the setting of septic shock. She has had consistent elevation of BUN and creatinine despite not achieving adequate diuresis. Her proBNP continues to remain high. Continue current dose of Lasix. 4. Pancytopenia because of intravenous Zyvox use which has been stopped since 03/18 status post 480 mcg of Neupogen on 03/20. 5. Hematology/Oncology on board. Heparin platelet factor antibodies are negative making heparin- induced thrombocytopenia less likely. Continue fondaparinux for DVT prophylaxis. She is status post 2 units of platelet transfusion. I will give additional transfusions. If platelet count drops to less than 20,000 with bleeding evidence. 6. Possibly right lower extremity DVT. However, ultrasound could not image it properly. Continue on heparin prophylactic dose. 7. Severe thrombocytopenia. I would avoid therapeutic dose. 8. Disposition: Patient's condition remains critical. TIME SPENT: More than 30 minutes of critical care time was spent in taking care of this patient. Unfortunately, considering large body habitus, we have had a lot of challenges in securing imaging. She could not go down for CAT scan either. I will update family about her course. ADDENDUM: I met with patient's mother and father in the waiting room. I talked with them about her poor prognosis considering ongoing septic shock and need for mechanical ventilation. I told them her condition is very critical requiring multiple modes of life support. They conveyed to me that if she would not get better, they would not want tracheostomy on her. cc: Humphrey Catherine MD [facility]
[2019-03-23] MEDS: PEPCID IV SCH ×2 (09:51→20:34)
[2019-03-23] MEDS: SODIUM CHLORIDE 0.9% INJ SCH ×2 (09:52→20:34)
[2019-03-23] MEDS: ARIXTRA SUBQ SCH (09:54)
[2019-03-23] MEDS: MYCOSTATIN POWDER TOP SCH ×2 (09:57→21:14)
[2019-03-23] MEDS: GRANIX SUBQ SCH (12:30)
--- NOTE | 2019-03-23 15:12 | PULMONOLOGY PROGRESS NOTE ---
DATE: 03/23/2019 SUBJECTIVE: The patient is sedated. She will attempt to open her eyes with some stimulation. OBJECTIVE: Vital Signs: The patient remains on Levophed. Blood pressure 126/71, heart rate 94, respiratory rate 18, oxygen saturation 100%. HEENT: Pupils are equal and reactive. No bleeding noted in the oropharynx. Neck is supple. Chest reveals coarse rhonchi bilaterally. Cardiac Examination: Distant heart sounds. Normal S1, normal S2. Abdomen: Obese and soft with inflammation and drainage associated with severe panniculitis. Extremities are unchanged. Laboratories: Chest x-ray reveals diffuse infiltrates, slightly worse than yesterday. White blood count 1.23, hemoglobin 11.4, platelet count 22,000. Arterial blood gas, pH 7.32, pCO2 of 59, PO2 of 115 on 60% FiO2. IMPRESSION: A 43-year-old with: 1. Morbid obesity. 2. Hypoxemic and hypercapnic respiratory failure. 3. Ongoing septic shock. 4. Pancytopenia. 5. Protein calorie malnutrition. PLAN: 1. I agree with Neupogen as ordered per oncology. 2. Continue broad-spectrum antibiotics. 3. Continue tube feeds. 4. Prognosis is guarded to poor. I spoke with family. Time spent in critical care management, 30 plus minutes. cc: Ulisses Cook MD
[2019-03-23] MEDS ORDERED: LASIX IV ONE (15:16)
--- NOTE | 2019-03-23 15:38 | PROGRESS NOTE ---
DATE: 03/23/2019 SUBJECTIVE: Patient continues on ventilator and sedated. OBJECTIVE: Vital signs: Blood pressure 113/65 on Levophed. Heart rate 101 and regular with ECG monitor showing sinus rhythm. Oxygen saturation 97% on ventilator with FiO2 of 60%. Central venous pressure reported to be 18. Neck: Jugular distention cannot be appreciated. Chest: Clear to auscultation anteriorly. Cardiac Exam: Reveals a regular rate and rhythm without appreciable murmur or gallop. Extremities: Demonstrate edema. LABORATORY DATA: Includes a white blood cell count 1.23, hematocrit 35.8, hemoglobin 11.4, platelet count 22,000. Sodium 139, potassium 4.9, chloride 98, carbon dioxide 25, BUN 94, creatinine 2.0, glucose 175. Bilirubin 2.5, AST 100, ALT 59, alkaline phosphatase 116. Pro B- natriuretic peptide level 25,717. IMPRESSIONS: 1. Acute hypoxemic/hypercapnic respiratory failure. 2. Sepsis and suspected pneumonia. 3. Soft tissue infection/cellulitis of pannus. 4. Morbid obesity. 5. Pancytopenia with severe thrombocytopenia. 6. Right-sided congestive heart failure with persistent elevated central venous pressure. RECOMMENDATIONS: 1. Continue supportive care. 2. Augment diuresis given persistent elevation of central venous pressure. 3. Agree with use of fondaparinux for DVT prophylaxis in light of patient's pancytopenia and thrombocytopenia. cc: Salazar Cooper MD
[2019-03-23] MEDS: FOLIC ACID PO SCH (20:34)
[2019-03-24] MEDS: LEVOPHED 8 MG in D5 1/2 NS 250 ML IV SCH ×3 (00:35→16:13)
[2019-03-24] MEDS: DIPRIVAN 1% 1,000 MG/100 ML BOTTLE IV SCH ×4 (00:35→22:32)
[2019-03-24] MEDS: MAXIPIME 1 GM in NS 50 ML IV SCH ×2 (01:24→14:36)
[2019-03-24 01:51] LABS: INR 1.23; PROTIME 16.5 Seconds (11.0-16.0); PTT 33.9 Seconds (22.3-41.8)
[2019-03-24 02:01] LABS: EOS# 0.05 X1000 (0.0-0.7); HEMATOCRIT 34.7 % (37.0-47.0); HEMOGLOBIN 11.2 g/dL (12.0-16.0); LYMPH# 0.45 X1000 (1.2-3.4); MCH 26.5 PG (27-31); MCHC 32.3 g/dL (33-37); MCV 82.2 FL (81-99); RBC 4.22 XMIL (4.2-5.4)
[2019-03-24 02:03] LABS: PLT 10 X1000 (130-400)
[2019-03-24 02:05] LABS: FIBRINOGEN > 999.0 mg/dL (178-478)
[2019-03-24 02:30] LABS: ALB/GLOB RATIO 0.5; ALBUMIN 1.9 g/dL (3.5-5.0); CALCIUM 8.7 mg/dL (8.8-10.2); POTASSIUM 4.6 mmol/L (3.5-5.1); TOTAL BILIRUBIN 2.91 mg/dL (0.20-1.00); TOTAL PROTEIN 5.8 g/dL (6.3-8.3)
[2019-03-24] MEDS: ALBUTEROL NEB INH SCH ×6 (03:21→23:24)
[2019-03-24 04:54] LABS: ALLEN TEST YES; BE 3.6 mmoll (-3.0-3.0); BLOOD TYPE ARTERIAL; HCO3-(ACT) 27.6 mmoll (20.0-26.0); METHB 0.1 % (0.0-1.5); O2(CT) 15.2 mL/dL (15.0-23.0); O2HB 92.6 % (95.0-99.0); PO2(98.6) 70 mmHg (60-100); SAMPLE BLOOD; SAO2 95.6 % (95.0-100.0); SRATE 18 BPM; THB 11.6 g/dL (11.5-17.4); TVOL 500 mL
[2019-03-24 05:02] LABS: MODALITY VENTILATOR; PCO2(98.6) 64 mmHg (35-45)
[2019-03-24] MEDS: MUCOMYST 20% INH SCH ×2 (07:33→19:20)
--- NOTE | 2019-03-24 07:39 | Diag Imaging Result Doc PS360 ---
EXAM: CHEST-PORTABLE INDICATION: respiratory failure TECHNIQUE: One view COMPARISON: 03/23/2019 FINDINGS: Support tubes and lines are in stable positions. Diffuse interstitial and airspace opacities likely representing severe pulmonary edema is approximately stable. No new consolidation is identified. Cardiac silhouette is stable. IMPRESSION: Grossly stable chest. Electronically signed by Paramjit Quiñonez 03/24/2019 7:38 AM
[2019-03-24] MEDS ORDERED: ZAROXOLYN PEG ONE (08:17)
[2019-03-24] MEDS ORDERED: ALBUMIN 25% IV ONE (08:18)
--- NOTE | 2019-03-24 09:18 | PROGRESS NOTE ---
DATE: 03/24/2019 INTERVAL HISTORY: Ms. Martin had significant drop in her platelet count, and she continues to have bleeding through her mouth. One unit of platelet transfusion was ordered for her. She was also given an additional dose of Lasix. However, she is still net positive. SUBJECTIVE: She is intubated on pressors, norepinephrine at about 15 to 20 mcg/minute. She is also on propofol. I discussed with the nursing team about stopping the propofol as tolerated. We also discussed about giving her additional diuretic to get net negative. OBJECTIVE: Vital Signs: Currently, temperature of 99.1 degrees, pulse of 102, respiratory rate 18, blood pressure 116/76. She is saturating 92% on mechanical ventilation at about 60%. General: Morbidly obese, not in any acute distress. She has endotracheal tube, nasogastric tube. She has urine catheter, rectal tube, right-sided neck central line. HEENT: Oral cavity has blood. Lungs: Air entry appears equal bilateral, suprascapular region. Difficult chest examination, rest of the lung rooney. Heart: S1, S2 normal. Tachycardic. No murmur, rub, or gallop. Abdomen: Obese, soft. She has erythema and open wounds affecting the right side of lower abdominal wall, lateral flank, right-sided gluteal region, lateral aspect of proximal thigh. Neurologic: Her pupils are bilaterally equal, reacting to light. She is resisting eye opening. She withdraws to painful stimuli in all extremities. LABORATORY DATA: Significant for persistent pancytopenia, normocytic anemia, severe thrombocytopenia and neutropenia, which is absolute. She continues to have elevated level of fibrinogen. Her ABG is suggestive of hypercarbic respiratory failure, and hypoxia is stable on 60% FiO2. She continues to have elevated BUN and creatinine, and transaminitis and liver function test abnormality, and elevated proBNP. MICROBIOLOGY: No new microbiological data. IMAGING: Suggestive of bilateral pulmonary edema. ASSESSMENT AND PLAN: 1. Septic shock secondary to cellulitis affecting right-sided abdominal wall, gluteal, and proximal thigh region with Streptococcus agalactiae and possibly bilateral pneumonia. Continue intravenous vancomycin, intravenous cefepime. Day 1 is 03/19/2019. Continue norepinephrine to maintain MAP more than 65. 2. Acute hypoxic hypercarbic respiratory failure due to baseline hypercarbic respiratory failure secondary to obesity hypoventilation syndrome, diastolic congestive heart failure exacerbation, and suspected bilateral pneumonia. Continue mechanical ventilation, and decrease sedation, and give as needed morphine. I will give her additional doses of Lasix, metolazone, and intravenous albumin to help with diuresis. Cardiology and Pulmonology on board. Day 1 of intubation was 03/15/2019. 3. Acute kidney injury in the setting of septic shock, and now use of intravenous Lasix. Will continue to monitor BMP. 4. Pancytopenia, likely because of intravenous Zyvox use, which was stopped since 03/18/2019 12. Currently on Neupogen and receiving another unit of platelets. I will follow up with CBC. Hematology/Oncology on board. I will hold deep venous thrombosis prophylaxis. Her heparin platelet factor 4 antibodies have been negative. Her mouth bleeding is likely due to thrombocytopenia. 5. Suspected DVT in lower extremity: US was limited in evaluating it. Disposition: Patient is critical and at high risk for mortality during this admission due to multiorgan failure. Her prognosis is poor. >30 minutes spent in critical care. cc: Humphrey Catherine MD MTDD
[2019-03-24] MEDS: LASIX IV SCH ×3 (09:53→19:53)
[2019-03-24] MEDS: MYCOSTATIN POWDER TOP SCH ×3 (10:00→20:16)
[2019-03-24] MEDS: PEPCID IV SCH ×2 (10:15→22:31)
[2019-03-24] MEDS: GRANIX SUBQ SCH (10:24)
[2019-03-24] MEDS: SODIUM CHLORIDE 0.9% INJ SCH (10:26)
--- NOTE | 2019-03-24 11:46 | HEMO/ONC CONSULTATION ---
DATE: 03/21/2019 ADMITTING PHYSICIAN: Dr. Antunez. REQUESTING PHYSICIAN: Dr. Antunez. We appreciate this consult. CHIEF COMPLAINT: Worsening thrombocytopenia. HISTORY OF PRESENT ILLNESS: Ms. Martin is an unfortunate, 43-year-old, female with a history of severe obesity, reactive arthritis, asthma, and pneumonia in August of 2018. The patient presented to [facility] Emergency Department with complaints of fever and chills as well as infection to right lower abdomen and behind the right knee. The patient is severely obese, weighing approximately 450 pounds. The patient reports that the fever began on March 10 with a T-max of 102 degrees. She also had a headache at that time. Upon presentation, the patient was noted to have significant edema to the right lower abdomen and buttocks, as well as right lower extremity Additionally, the patient had a left groin open wound. The patient also had reports of an inability to urinate upon presentation. Upon workup in the emergency department, the patient was found to have a lactate level elevated to 2.7, as well as a proBNP of 12,234. Blood cultures and wound cultures were obtained. The patient was found to be septic. The patient ultimately developed shortness of breath with progressive increase in oxygen requirements and became unresponsive on 03/15/2019. The patient was ultimately intubated, requiring mechanical ventilation, and was found to be septic. She is currently in the intensive care unit in septic shock, requiring pressors and ongoing ventilator support. We are consulted as the patient has become thrombocytopenic and neutropenic. Current ANC is 0.05, white blood cell count is 0.49, platelet count is 64,000. The patient has had no overt bleeding. PAST MEDICAL HISTORY: 1. Severe obesity. 2. Reactive arthritis. 3. Asthma. 4. Pneumonia. 5. Hypertension. 6. Borderline diabetes. SOCIAL HISTORY: The patient does not use tobacco, alcohol, or illicit drugs. FAMILY HISTORY: Negative for hematologic or oncologic problems. MEDICATIONS ON ADMISSION: 1. Folic acid. 2. Meloxicam. 3. Methotrexate. ALLERGIES: Aspirin, naproxen, Xylitol, bees, chocolate, Mountain Dew, and Power Aide. REVIEW OF SYSTEMS: A 14 point review of systems was attempted and is unable to be obtained as the patient is intubated and sedated. PHYSICAL EXAMINATION: Ms. Eudy is an unfortunate, 43-year-old, female who is severely obese, lying supine in bed. Intubated with ventilator support, on propofol. Vital Signs: Temperature 97.9 degrees, blood pressure 103/64, heart rate 89, respirations 18, O2 saturation 93% on the ventilator. HEENT: Normocephalic, atraumatic. Mucous membranes are pale and somewhat dry. Sclerae are anicteric. Extraocular movements intact. Neck: Supple. Lungs: With decreased breath sounds throughout. CV: S1 and S2 were heard with no murmur, rub, or gallop. Abdomen: Nondistended, nontender. Bowel sounds decreased throughout. No rebound or guarding is noted. Extremities: With 3+ bilateral lower extremity edema. Dermatologic: No rashes, bruises, or lesions. Neurologic: The patient is intubated, sedated on propofol, and is unresponsive. LABORATORY DATA: ANC 0.05, hemoglobin 11.4, hematocrit 36.2, white blood cell count 0.49, platelets 64,000. Sodium 138, potassium 5.6, chloride 96, CO2 is 28, BUN 69, creatinine 1.8, and glucose is 154. LDH is 334. IMAGING STUDIES: Chest x-ray reveals pulmonary edema plus or minus pneumonia. ASSESSMENT AND PLAN: 1. Thrombocytopenia. Platelet count is 64,000. The patient has no current overt bleeding. We will continue to monitor. If the platelet count drops below 20,000 or in the event of active bleeding, we would transfuse platelets. 2. Neutropenia. ANC is 0.05, white blood cell count is 0.49. We will place the patient on Granix daily. Additionally, the patient is currently on antibiotics. We will proceed with a workup at this time. 3. Septic shock, panniculitis, and cellulitis, as well as questionable pneumonia. The patient is currently on antibiotics per infectious disease. She is additionally on Levophed. 4. Acute on chronic respiratory failure. The patient is currently intubated, on the ventilator, and sedated as per Dr. Cook. 5. Morbid obesity, known. 6. Questionable right lower extremity deep venous thrombosis. Currently on prophylactic Lovenox only due to thrombocytopenia. 7. Elevated liver function tests, questionably related to shock liver. 8. We will follow along with you and make further recommendations pending outcomes. The above reflects the history, exam, assessment, and plan of Dr. Bailey. Dictated by JAILYN Milan for Jay Bailey MD cc: JAILYN Milan MD
[2019-03-24 13:43] LABS: HEMATOCRIT 31.9 % (37.0-47.0); HEMOGLOBIN 10.3 g/dL (12.0-16.0); MCH 26.5 PG (27-31); MCHC 32.3 g/dL (33-37); MCV 82.2 FL (81-99); MPV 9.5 FL (7.4-10.4); PLT 19 X1000 (130-400); RBC 3.88 XMIL (4.2-5.4); RDW 19.1 % (11.5-14.5); WBC 0.24 X1000 (4.8-10.8)
--- NOTE | 2019-03-24 19:18 | PROGRESS NOTE ---
DATE: 03/24/2019 SUBJECTIVE: Patient continues sedated on a ventilator. She remains on Levophed for blood pressure support. OBJECTIVE: Vital Signs: Blood pressure 98/57, heart rate 108 and regular, with ECG monitor showing sinus rhythm. Oxygen saturation is 94% with FiO2 of 70% on a ventilator. Neck: Jugular venous distention cannot be appreciated. Chest: Clear to auscultation anteriorly. Cardiac: Regular rate and rhythm without appreciable murmur or gallop. Extremities: Demonstrate edema. IMAGING: Chest x-ray is technically difficult. Left side infiltrate is prominent. There is some increasing infiltrate on the right. LABORATORY DATA: Includes a white blood cell count of 0.24, hematocrit 31.9, hemoglobin 10.3, platelet count 19,000. Sodium 141, potassium 4.6, chloride 99, carbon dioxide 27, BUN 15, potassium 4.6, chloride 99, carbon dioxide 27, BUN 105, creatinine 2.0, glucose 174, albumin 1.9. IMPRESSION: 1. Acute hypoxemic/hypercapnic respiratory failure. 2. Sepsis and pneumonia. 3. Soft-tissue infection/cellulitis of pannus. 4. Morbid obesity. 5. Pancytopenia with severe thrombocytopenia and neutropenia. 6. Right-sided congestive heart failure with persistent elevated central venous pressure. RECOMMENDATIONS: 1. Continue supportive care. 2. Continue intravenous Lasix twice daily and diurese. 3. Prognosis poor overall. cc: Salazar Cooper MD
[2019-03-24] MEDS: FOLIC ACID PO SCH ×2 (19:54→20:15)
--- NOTE | 2019-03-25 00:36 | PULMONOLOGY PROGRESS NOTE ---
DATE: 03/24/2019 SUBJECTIVE: The patient is poorly responsive. OBJECTIVE: Vital Signs: The patient has been afebrile for the last 24 hours. She remains on Levophed at significant dosing. BP 108/53, heart rate 99, respiratory rate 25, oxygen saturation 98%. HEENT: Pupils are equal and reactive. Oropharynx appears clear. Neck: Supple. Chest: Reveals distant breath sounds bilaterally with coarse rhonchi. Cardiac: Distant heart sounds. Normal S1, normal S2. Abdomen: Obese and soft with extensive panniculitis with erythema and drainage. Extremities: Reveal generalized increased in adiposity. LABORATORIES: Chest x-ray reveals diffuse infiltrates/edema. White blood count 0.24, hemoglobin 10.3, platelet count 19,000. Arterial blood gas reveals a pH of 7.30, pCO2 of 64, pO2 of 70. Sodium 141, potassium 4.6, chloride 99, bicarbonate 27, BUN 105, creatinine 2.0. IMPRESSION: A 43-year-old with 1. Morbid obesity. 2. Hypoxemic and hypercapnic respiratory failure. 3. Ongoing septic shock. 4. Renal failure with progressive decline. 5. Pancytopenia. 6. Protein calorie malnutrition. PLAN: 1. Continue broad-spectrum antibiotics. 2. Continue full ventilatory support. 3. Continue tube feeds. 4. Overall prognosis is very poor with her multiple comorbidities and multiorgan failure. Family was not at the bedside. TIME SPENT: Critical care management 30+ minutes. cc: Ulisses Cook MD
[2019-03-25] MEDS: MAXIPIME 1 GM in NS 50 ML IV SCH (00:46)
[2019-03-25] MEDS: LEVOPHED 8 MG in D5 1/2 NS 250 ML IV SCH ×2 (00:46→07:40)
[2019-03-25] MEDS: DIPRIVAN 1% 1,000 MG/100 ML BOTTLE IV SCH ×3 (02:25→09:33)
[2019-03-25] MEDS: ALBUTEROL NEB INH SCH ×2 (03:39→07:48)
[2019-03-25] MEDS: LASIX IV SCH (03:41)
[2019-03-25 04:43] LABS: ALLEN TEST YES; BE 3.3 mmoll (-3.0-3.0); BLOOD TYPE ARTERIAL; HCO3-(ACT) 27.5 mmoll (20.0-26.0); METHB 0.9 % (0.0-1.5); O2(CT) 14.5 mL/dL (15.0-23.0); O2HB 95.3 % (95.0-99.0); PO2(98.6) 89 mmHg (60-100); SAMPLE BLOOD; SAO2 98.2 % (95.0-100.0); SRATE 18 BPM; THB 10.7 g/dL (11.5-17.4); TVOL 500 mL; pH(98.6) 7.35 (7.35-7.45)
[2019-03-25 04:48] LABS: MODALITY VENTILATOR; PCO2(98.6) 54 mmHg (35-45)
[2019-03-25 05:48] LABS: HEMATOCRIT 30.8 % (37.0-47.0); HEMOGLOBIN 10.2 g/dL (12.0-16.0); MCH 26.6 PG (27-31); MCHC 33.1 g/dL (33-37); MCV 80.2 FL (81-99); RBC 3.84 XMIL (4.2-5.4); RDW 18.9 % (11.5-14.5); WBC 0.43 X1000 (4.8-10.8)
[2019-03-25 05:49] LABS: EOS# 0.12 X1000 (0.0-0.7); EOS% 27.9 % (0.0-10.0); LYMPH% 69.8 % (20.5-51.1); MONO# 0.01 X1000 (0.11-0.59); MONO% 2.3 % (1.7-9.3)
[2019-03-25 05:51] LABS: PLT 23 X1000 (130-400)
[2019-03-25 06:02] LABS: ALB/GLOB RATIO 0.5; ALBUMIN 1.9 g/dL (3.5-5.0); CALCIUM 8.5 mg/dL (8.8-10.2); CREATININE 2.3 mg/dL (0.5-0.9); POTASSIUM 4.3 mmol/L (3.5-5.1); TOTAL BILIRUBIN 3.41 mg/dL (0.20-1.00); TOTAL PROTEIN 5.8 g/dL (6.3-8.3)
--- NOTE | 2019-03-25 07:21 | Diag Imaging Result Doc PS360 ---
EXAM: CHEST-PORTABLE INDICATION: respiratory failure TECHNIQUE: One view COMPARISON: 03/24/2019 FINDINGS: Support tubes and lines are in stable positions. Lung volumes are low. Interstitial and airspace infiltrates bilaterally likely representing severe pulmonary edema is approximately stable. No new consolidation is identified. Cardiac silhouette is stable. IMPRESSION: Somewhat lower lung volumes. Stable chest, otherwise. Electronically signed by Paramjit Quiñonez 03/25/2019 7:19 AM
[2019-03-25] MEDS: MUCOMYST 20% INH SCH (07:48)
[2019-03-25] MEDS ORDERED: SOLU-CORTEF IV SCH (08:00)
[2019-03-25] MEDS ORDERED: ALBUMIN 25% IV ONE (08:08)
--- NOTE | 2019-03-25 08:42 | PROGRESS NOTE ---
DATE: 03/25/2019 INTERVAL HISTORY: The patient has received 2 units of platelet. She continues to have bleeding through the mouth. Platelet count continues to remain low. No other events. She had made good amount of urine on yesterday's Lasix; however, she is still net positive. VITALS: Currently temperature 98.1 degrees, pulse of 110, respiratory rate of 18, blood pressure maintaining MAP more than 65 mmHg, requiring about 15 to 20 mcg of norepinephrine. PHYSICAL EXAMINATION: General: Morbidly obese. She has endotracheal tube, nasal suction, NG tube, urine catheter, rectal tube and right-sided central line. She is not in any acute distress. She has marked cyanosis of bilateral fingers. No pallor. She has generalized anasarca. Lungs: Air entry difficult to appreciate, however appears equal bilateral upper lung rooney. Cardiovascular: S1, S2 normal. No murmur or gallop. Abdomen: Obese. Examination is limited because of body habitus. Skin: She has skin breaking involving right side of the abdominal wall, right side of the groin, right side of the hip region. Input and output positive 300 mL. LABS: Suggestive of persistent pancytopenia and neutropenia. Her pH is 7.35, pCO2 of 54. She does appear to have worsening acute kidney injury. MICROBIOLOGY: No data. ASSESSMENT AND PLAN: 1. Septic shock secondary to cellulitis affecting right-sided abdominal wall, gluteal and proximal thigh region with Streptococcus agalactiae, and possibly bilateral pneumonia. Continue intravenous vancomycin and cefepime. Day 1 is March 19. Continue norepinephrine to maintain MAP more than 65. 2. Acute hypoxic respiratory failure due to baseline hypercarbic respiratory failure secondary to obesity hypoventilation syndrome, diastolic congestive heart failure exacerbation, and bilateral pneumonia. Continue mechanical ventilation. Decrease sedation as tolerated and as- needed morphine. I will again try and diurese her with additional doses of Lasix and albumin. Day 1 of intubation was March 15. 3. Acute kidney injury in the setting of septic shock and now with intravenous Lasix. Continue to monitor basic metabolic panel. 4. Pancytopenia likely because of intravenous Zyvox use, which has been stopped since March 18, requiring multiple platelet transfusion. Currently on Neupogen. Hematology/Oncology on board. Even if intervention is planned to stop the mouth bleeding considering her thrombocytopenia, she would bleed again. DISPOSITION: The patient's condition is critical. More than 30 minutes of critical care time was spent in taking care of this patient. cc: Humphrey Catherine MD
[2019-03-25] MEDS ORDERED: LASIX IV SCH (09:00)
[2019-03-25] MEDS: PEPCID IV SCH (09:44)
[2019-03-25] MEDS: GRANIX SUBQ SCH (09:51)
[2019-03-25] MEDS: MYCOSTATIN POWDER TOP SCH (10:00)
[2019-03-25] MEDS ORDERED: ATROPINE 1 % OPHTH SOLN SL PRN (10:33)
[2019-03-25] MEDS ORDERED: ATIVAN IV PRN (10:33)
--- NOTE | 2019-03-25 11:34 | PROGRESS NOTE ---
DATE: 03/25/2019 Addendum GOALS OF CARE: On discussion, I went to the bedside and talked with the patient's family. The patient's mother, father and other family members were in the room. I explained to them about the patient's critical care including septic shock, hypoxic respiratory failure, acute kidney injury, multi organ failure, and continuous need for ventilator support as well as pressor support. I explained to them that the patient has been now intubated for almost 11 days and has had continuous IV pressor requirements since then. She has not shown any signs of improvement over the last many days, and has continued to accrue more and more medical problems. I explained to them about the patient's poor prognosis considering multiorgan failure as well as multiple comorbidities. At that point, family conveyed to me that they would like to stop all the aggressive measures which are not giving any results. Rather, they would like to provide her comfortable care. I explained to them that in that case we would extubate her. We will stop all the aggressive measures including IV pressor support. We will start her on intravenous pain medications as well as intravenous medication to alleviate her anxiety, and at that point her goals will be to provide care which will be targeted to make her comfortable. They agreed. I have conveyed this plan to the nursing team. We will terminally extubate the patient, and will provide comfort measures only. cc: Humphrey Catherine MD
[2019-03-25 12:58] VITALS: BP 86/54
--- NOTE | 2019-03-26 18:51 | DISCHARGE SUMMARY ---
ADMISSION DATE: 03/13/2019 DISCHARGE DATE: 03/25/2019 DATE OF : 03/25/2019. TIME OF : 11:50 a.m. CAUSE OF : 1. Acute hypoxic respiratory failure. 2. Septic shock due to cellulitis. 3. Acute kidney injury. 4. Contributing factors, morbid obesity. HOSPITAL COURSE SUMMARY: Ms. Martin is a 43-year-old, , morbidly obese woman, who had initially presented on 03/13/2019, with chief complaints of fever and abdominal infection. She was admitted for intravenous antibiotics for treatment of cellulitis. While inside the hospital, her hypoxia had started becoming worse to the extent that she required intubation and mechanical ventilation, and she had developed septic shock for which she required pressor support. For about 10 days, she required continued ventilatory support, intravenous pressor medication for septic shock, intravenous antibiotics, and intravenous Lasix with intermittent albumin infusion. Despite all of these measures, her condition did not improve and she gradually developed progressive kidney dysfunction as well. Her critical condition multiorgan failure and poor prognosis was explained to the patient's family including father and mother, and considering everything, they had decided to pursue comfort measures only. The patient was compassionately extubated, and was kept on oxygen through nasal cannula, as-needed pain medication, and antianxiety medication. However, within a few minutes of extubation, the patient . TIME: Less than 30 minutes was spent in preparing this discharge summary cc: Humphrey Catherine MD
== END 2019-03-25 11:50 | disposition expired | DRG 870 ==
LOC: SUPCPDRO → ED 09:42 → 4N 16:28 → SUATTDRO 16:28 → 4N 16:45 → ICU 20:40
PROVIDERS: ATTEND Internal Medicine
CPT/HCPCS: 31500; 51702; 71010; 71045; 74000; 74018; 76770; 80048; 80053; 80061; 80069; 80202; 81001; 81025; 82232; 82533; 82550; 82570; 82746; 82784; 82805; 83010; 83036; 83540; 83550; 83605; 83615; 83735; 83880; 84100; 84155; 84165; 84300; 84443; 84484; 84540; 85025; 85045; 85379; 85384; 85610; 85730; 86022; 86038; 86039; 86334; 86850; 86900; 86901; 87040; 87070; 87077; 87186; 87205; 93005; 93010; 93306; 93970; 94002; 94003; 94640; 94660; 94761; 96365; 96366; 96367; 96368; 96375; 99285; 99291; A9270; J0330; J0610; J0692; J0696; J0878; J1446; J1447; J1450; J1644; J1650; J1652; J1720; J1940; J2020; J2270; J2405; J2543; J3370; J7030; J7040; J7070; J9260; P9035; P9047; S0028